=== PATIENT | male | born 1955 | race Caucasian/White ===

== ENCOUNTER 2016-07-14 07:40 | Observation (INO) | payer BC ==
[~2016-07-14] VITALS: Ht 152.4 cm; Wt 98.0 kg
[2016-07-14 07:44] VITALS: BP 140/70; PULSE 89; RESP 15; TEMP 97.6; O2SAT 95
[2016-07-14] MEDS ORDERED: TIOT1AER INH (08:14)
[2016-07-14] MEDS ORDERED: NITR1SUB3 SL (08:14)
[2016-07-14] MEDS ORDERED: CARV6.252 PO (08:14)
[2016-07-14] MEDS ORDERED: RANO500 PO (08:14)
[2016-07-14] MEDS ORDERED: PLAV75TA29 PO (08:14)
[2016-07-14] MEDS ORDERED: ASPI81CH37 CHEW (08:14)
[2016-07-14] MEDS ORDERED: ROSU1TAB8 PO (08:14)
[2016-07-14] MEDS ORDERED: RAMI2.5C PO (08:14)
[2016-07-14 08:16] VITALS: BP 96/61; PULSE 79; RESP 17; O2SAT 93
[2016-07-14 08:20] VITALS: BP 96/61; PULSE 77
[2016-07-14 08:27] VITALS: O2SAT 96
[2016-07-14] MEDS ORDERED: ASPIRIN 325 MG TAB PO ONE (08:30)
[2016-07-14] MEDS ORDERED: methylPREDNISolone SOD SUCC 125 MG/2 ML VIAL IV PUSH ONE (08:30)
[2016-07-14] MEDS ORDERED: SODIUM CHLORIDE 0.9% FLUSH 10 ML FLUSH IVF PRN (08:30)
--- NOTE | 2016-07-14 08:30 | PD ---
HPI Chief Complaint: Cardiac Complaint Time Seen by Provider: 08:24 Travel History International Travel<30 days: No Contact w/Intl Traveler<30days: No Traveled to known affect area: No History of Present Illness HPI 60-year-old male with history of previous TX, presents to the ER today because he states that he woke up this morning and started having a 7 out of 10 chest pain at 7 AM, took nitroglycerin this morning and he states his chest pain is gone. He is here because of the chest pain concern. He is also noted to have some slurring of the speech which she states is not normal for him although he is mildly disoriented as well. Patient also complains of mild shortness of breath. He denies any nausea, fevers, vomiting, or any other symptoms. Modifying Factors: None Associated Signs & Symptoms: Chest pain episode, shortness of breath, disorientation Risk Factors: Previous CVA, [place] PFSH Past Medical History Heart Rhythm Problems: No Cardiac Catheterization: No Cardiovascular Problems: Yes ([place] ) High Cholesterol: Yes Chest Pain: Yes Congestive Heart Failure: No COPD: Yes Cerebrovascular Accident: Yes Diabetes: No Neurologic: Yes Immunizations Current: Yes Myocardial Infarction: Yes Tetanus Vaccination: < 5 Years Influenza Vaccination: Yes Tubal Ligation: Yes Past Surgical History Abdominal Surgery: Yes Appendectomy: Yes Coronary Artery Bypass Graft: No Tonsillectomy: Yes Other Surgery: Yes Family History Family Myocardial Infarction: Yes Social History Alcohol Use: Yes (three times a week) Tobacco Use: Yes (almost two packs per day) Substance Use: Yes (cocaine ) Allergies-Medications (Allergen,Severity, Reaction): Coded Allergies: Penicillin (Verified Allergy, Severe, 07/14/16) Reported Meds & Prescriptions Reported Meds & Active Scripts Active Reported Stiolto Respimat Inh (Tiotropium-Olodaterol Inh) 2.5-2.5 Mcg/Act Aero 2 Puff INH DAILY Rosuvastatin (Rosuvastatin Calcium) 20 Mg Tab 20 Mg PO HS Nitroglycerin SL (Nitroglycerin) 0.4 Mg Subl 0.4 Mg SL DIRECTED PRN ONE TABLET UNDER THE TONGUE NEEDED FOR CHEST PAIN, MAY REPEAT EVERY FIVE MINUTES FOR A TOTAL OF 3 DOSES OR CALL 911 IF NO RELIEF Carvedilol 6.25 Mg Tab 6.25 Mg PO BID Ranexa ER 12 HR (Ranolazine) 500 Mg Tab 500 Mg PO BID Ramipril 2.5 Mg Cap 2.5 Mg PO DAILY Aspirin Low Dose (Aspirin) 81 Mg Chew 81 Mg CHEW DAILY Plavix (Clopidogrel Bisulfate) 75 Mg Tab 75 Mg PO DAILY Review of Systems Except as stated in HPI: all other systems reviewed are Neg (he is mildly disoriented although able to answer most questions) Physical Exam Narrative GENERAL: Well-developed elderly white male patient who is not currently in distress. He is awake, alert, mildly disoriented, but oriented 3. Slurred speech. SKIN: Focused skin assessment warm/dry. HEAD: Atraumatic. Normocephalic. EYES: Pupils equal and round. No scleral icterus. No injection or drainage. ENT: No nasal bleeding or discharge. Mucous membranes pink and moist. NECK: Trachea midline. No JVD. CARDIOVASCULAR: Regular rate and rhythm. No murmur appreciated. RESPIRATORY: No accessory muscle use. Mild wheezing bilaterally. Breath sounds equal bilaterally. GASTROINTESTINAL: Abdomen soft, non-tender, nondistended. Hepatic and splenic margins not palpable. MUSCULOSKELETAL: No obvious deformities. No clubbing. No cyanosis. No edema. NEUROLOGICAL: Awake and alert. No obvious cranial nerve deficits. Motor grossly within normal limits. Slurred speech. PSYCHIATRIC: Appropriate mood and affect; insight and judgment normal. Data Data Last Documented VS Vital Signs Date Time Temp Pulse Resp B/P Pulse Ox O2 Delivery O2 Flow Rate FiO2 07/14/16 08:27 96 Nasal Cannula 2 07/14/16 08:20 77 96/61 07/14/16 08:16 17 07/14/16 07:44 97.6 Orders Electrocardiogram (07/14/16 ) Electrocardiogram (07/14/16 08:24) B-Type Natriuretic Peptide (07/14/16 08:24) Ckmb (Isoenzyme) Profile (07/14/16 08:24) Complete Blood Count With Diff (07/14/16 08:24) Comprehensive Metabolic Panel (07/14/16 08:24) Magnesium (Mg) (07/14/16 08:24) Prothrombin Time / Inr (Pt) (07/14/16 08:24) Act Partial Throm Time (Ptt) (07/14/16 08:24) Troponin I (07/14/16 08:24) Chest, Single Ap (07/14/16 08:24) Ecg Monitoring (07/14/16 08:24) Bilateral Bp Monitoring (07/14/16 08:24) Iv Access Insert/Monitor (07/14/16 08:24) Oximetry (07/14/16 08:24) Oxygen Administration (07/14/16 08:24) Aspirin (Aspirin) (07/14/16 08:30) Sodium Chloride 0.9% Flush (Ns Flush) (07/14/16 08:30) Methylprednisolone So Succ Inj (Solumedr (07/14/16 08:30) Albuterol-Ipratropium Neb (Duoneb Neb) (07/14/16 08:30) Alcohol (Ethanol) (07/14/16 08:24) Ct Brain W/O Iv Contrast(Rout) (07/14/16 08:30) CKMB (07/14/16 08:30) CKMB% (07/14/16 08:30) Admit Order (Ed Use Only) (07/14/16 09:58) Labs Laboratory Tests Test 07/14/16 08:30 White Blood Count 7.3 TH/MM3 Red Blood Count 4.35 MIL/MM3 Hemoglobin 14.2 GM/DL Hematocrit 39.9 % Mean Corpuscular Volume 91.8 FL Mean Corpuscular Hemoglobin 32.7 PG Mean Corpuscular Hemoglobin 35.6 % Concent Red Cell Distribution Width 12.7 % Platelet Count 181 TH/MM3 Mean Platelet Volume 9.0 FL Neutrophils (%) (Auto) 64.1 % Lymphocytes (%) (Auto) 23.2 % Monocytes (%) (Auto) 8.8 % Eosinophils (%) (Auto) 3.3 % Basophils (%) (Auto) 0.6 % Neutrophils # (Auto) 4.7 TH/MM3 Lymphocytes # (Auto) 1.7 TH/MM3 Monocytes # (Auto) 0.6 TH/MM3 Eosinophils # (Auto) 0.2 TH/MM3 Basophils # (Auto) 0.0 TH/MM3 CBC Comment DIFF FINAL Differential Comment Prothrombin Time 11.3 SEC Prothromb Time International 1.0 RATIO Ratio Activated Partial 27.1 SEC Thromboplast Time Sodium Level 135 MEQ/L Potassium Level 3.5 MEQ/L Chloride Level 100 MEQ/L Carbon Dioxide Level 28.5 MEQ/L Anion Gap 7 MEQ/L Blood Urea Nitrogen 23 MG/DL Creatinine 1.05 MG/DL Estimat Glomerular Filtration 72 ML/MIN Rate Random Glucose 137 MG/DL Calcium Level 9.0 MG/DL Magnesium Level 2.1 MG/DL Total Bilirubin 1.0 MG/DL Aspartate Amino Transf 59 U/L (AST/SGOT) Alanine Aminotransferase 59 U/L (ALT/SGPT) Alkaline Phosphatase 80 U/L Total Creatine Kinase 733 U/L Creatine Kinase MB 16.8 NG/ML Creatine Kinase MB % 2.3 % Troponin I LESS THAN 0.02 NG/ML B-Type Natriuretic Peptide 63 PG/ML Total Protein 7.0 GM/DL Albumin 3.8 GM/DL Ethyl Alcohol Level 3 MG/DL MDM Medical Decision Making Medical Screen Exam Complete: Yes Emergency Medical Condition: Yes Medical Record Reviewed: Yes Interpretation(s) EKG shows NSR, no ST elevation or depression, and no arrhythmias. No significant T-wave inversions. Laboratory Tests Test 07/14/16 08:30 Red Blood Count 4.35 MIL/MM3 (4.50-5.90) Monocytes (%) (Auto) 8.8 % (0.0-8.0) Sodium Level 135 MEQ/L (136-145) Blood Urea Nitrogen 23 MG/DL (7-18) Estimat Glomerular Filtration 72 ML/MIN (>89) Rate Random Glucose 137 MG/DL (74-106) Aspartate Amino Transf 59 U/L (15-37) (AST/SGOT) Total Creatine Kinase 733 U/L (39-308) Creatine Kinase MB 16.8 NG/ML (0.5-3.6) Troponin I LESS THAN 0.02 NG/ML (0.02-0.05) Last [address] 07/14/16829 Signed Impressions: Service Date/Time: June 08:54 - CONCLUSION: Stable noncontrast head CT. No acute intracranial abnormality is identified. Douglas Zuniga MD Chest X-Ray 07/14/16823 Signed Impressions: Service Date/Time: June 08:33 - CONCLUSION: No acute cardiopulmonary abnormality is identified. Douglas Zuniga MD Differential Diagnosis Chest pain, shortness of breath, disorientationACS versus dysrhythmias versus alcohol intoxication versus metabolic issues versus alcohol intoxication versus CVA versus acute intracranial processes Narrative Course Patient has no focal neurological deficits. He has no signs of significant metabolic issues and cardiac enzymes are negative. EKG did not show any signs of ST changes. At this point, he is chest pain-free. CT of the brain did not reveal any signs of acute processes. On reevaluation at 10 AM, he is signs significant distress. He is awake and oriented 3. My plan would be at this point to admit him to chest pain center for further evaluation of his chest pain episode considering cardiac history. Diagnosis Primary Impression: Chest pain Admitting Information Admitting Physician Requests: it Alessandro Mobley MD Jul 14, 2016 08:30
[2016-07-14] MEDS: RESP: ALBUTEROL 2.5 MG/IPRATROPIUM 0.5 MG NEB (SCH) INH ×2 (08:36→08:37)
[2016-07-14 09:08] LABS: AUTOMATED NEUTROPHIL # 4.7 TH/MM3 (1.8-7.7); BASOPHIL % 0.6 % (0.0-2.0); EOSINOPHIL # 0.2 TH/MM3 (0-0.4); EOSINOPHIL % 3.3 % (0.0-4.0); HEMATOCRIT 39.9 % (39.0-51.0); HEMO FLAGS DIFF FINAL; LYMPH % 23.2 % (9.0-44.0); LYMPHOCYTE # 1.7 TH/MM3 (1.0-4.8); MEAN CELL VOLUME 91.8 FL (80.0-100.0); MEAN CORPUSCULAR HEMOGLOBIN 32.7 PG (27.0-34.0); MEAN CORPUSCULAR HGB CONC 35.6 % (32.0-36.0); MONO % 8.8 % (0.0-8.0); NEUT % 64.1 % (16.0-70.0); PLATELET COUNT 181 TH/MM3 (150-450); RED BLOOD COUNT 4.35 MIL/MM3 (4.50-5.90); RED CELL DISTRIBUTION WIDTH 12.7 % (11.6-17.2); WHITE BLOOD COUNT 7.3 TH/MM3 (4.0-11.0)
[2016-07-14 09:17] LABS: APTT (PATIENT) 27.1 SEC (24.3-30.1); PROTHROMBIN TIME - PATIENT 11.3 SEC (9.8-11.6)
--- NOTE | 2016-07-14 09:18 | RADRPT ---
EXAM DATE/TIME: 07/14/2016 08:54 [facility] COMPARISON: CT BRAIN W/O CONTRAST, August 30, 2010, 20:20. INDICATIONS : Altered, slurred speech RADIATION DOSE: 41.12 CTDIvol (mGy) MEDICAL HISTORY : Cardiovascular disease. Cerebrovascular disease. SURGICAL HISTORY : Tonsillectomy. ENCOUNTER: Initial ACUITY: 1 day PAIN SCALE: 2/10 LOCATION: Bilateral cranial TECHNIQUE: Multiple contiguous axial images were obtained of the head. Using automated exposure control and adj ustment of the mA and/or kV according to patient size, radiation dose was kept as low as reasonably a chievable to obtain optimal diagnostic quality images. FINDINGS: CEREBRUM: There is mild cerebral atrophy particularly in the frontal region. Ventricles are normal in size the cavum septum pellucidum. No evidence of midline shift, mass lesion, hemorrhage or acute infarction. No extra-axial fluid collections are seen. POSTERIOR FOSSA: The cerebellum and brainstem demonstrate no acute finding. The 4th ventricle is midline. The cerebe llopontine angle is unremarkable. EXTRACRANIAL: Visualized sinuses are clear. SKULL: The calvaria is intact. No evidence of skull fracture. CONCLUSION: Stable noncontrast head CT. No acute intracranial abnormality is identified. Douglas Zuniga MD on July 14, 2016 at 9:10 Board Certified Radiologist. This report was verified electronically.
[2016-07-14 09:27] LABS: ANION GAP 7 MEQ/L (5-15)
[2016-07-14 09:32] LABS: ALKALINE PHOSPHATASE 80 U/L (45-117); ALT (GPT) 59 U/L (12-78); AST (GOT) 59 U/L (15-37); BICARBONATE 28.5 MEQ/L (21.0-32.0); BLOOD UREA NITROGEN 23 MG/DL (7-18); CHLORIDE 100 MEQ/L (98-107); CREATINE KINASE 733 U/L (39-308); GLOMERULAR FILTRATION RATE 72 ML/MIN (>89); MAGNESIUM 2.1 MG/DL (1.5-2.5); POTASSIUM 3.5 MEQ/L (3.5-5.1); SODIUM (NA) 135 MEQ/L (136-145)
--- NOTE | 2016-07-14 09:47 | RADRPT ---
EXAM DATE/TIME: 07/14/2016 08:33 [facility] COMPARISON: CHEST SINGLE AP, June 28, 2015, 5:00. INDICATIONS : Shortness of breath. MEDICAL HISTORY : None. SURGICAL HISTORY : None. ENCOUNTER: Initial ACUITY: 3 days PAIN SCORE: 0/10 LOCATION: Bilateral chest FINDINGS: Portable AP view of the chest demonstrates a normal-sized cardiac silhouette. No effusion, consolidat ion, or pneumothorax is visualized. The bones and soft tissues demonstrate no acute abnormality. CONCLUSION: No acute cardiopulmonary abnormality is identified. Douglas Zuniga MD on July 14, 2016 at 9:45 Board Certified Radiologist. This report was verified electronically.
[2016-07-14 10:01] LABS: CKMB 16.8 NG/ML (0.5-3.6)
[2016-07-14] MEDS ORDERED: SODIUM CHLORIDE 0.9% FLUSH 10 ML FLUSH IV FLUSH PRN (10:45)
[2016-07-14] MEDS ORDERED: NITROGLYCERIN 0.4 MG SL 25 TABS/BTL SL PRN (10:45)
[2016-07-14] MEDS ORDERED: ACETAMINOPHEN 500 MG CPLT PO PRN (10:45)
[2016-07-14] MEDS ORDERED: ONDANSETRON HCL 4 MG/2 ML VIAL IV PRN (10:45)
[2016-07-14 11:00] VITALS: BP 112/76; PULSE 71; RESP 18; O2SAT 96
[2016-07-14 12:22] LABS: CREATINE KINASE 655 U/L (39-308)
[2016-07-14 12:34] LABS: CKMB 15.2 NG/ML (0.5-3.6)
[2016-07-14 12:39] LABS: AMPHETAMINE, URINE NEG (NEG); BARBITURATES, URINE NEG (NEG); COCAINE, URINE POS (NEG)
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
[2016-07-14] MEDS ORDERED: SODIUM CHLOR 0.9% 1000 ML INJ 1,000 ML IV SCH (13:45)
[2016-07-14] MEDS ORDERED: RESP: ALBUTEROL 2.5 MG/3 ML NEB (PRN) NEB (13:45)
--- NOTE | 2016-07-14 13:53 | EKG ---
Date Performed: 07/14/2016 Time Performed: 07:56:24 PTAGE: 60 years EKG: Sinus rhythm NONSPECIFIC T-WAVE ABNORMALITY BORDERLINE ECG Compared to prior tracing no significant change PREVIOUS TRACING : 06/28/2015 10.47 DOCTOR: Alfredito Díaz Interpretating Date/Time 07/14/2016 13:52:56
--- NOTE | 2016-07-14 14:23 | HHI.DCPOC ---
Discharge Care Plan Diagnosis: (1) Atypical chest pain (2) Tobacco abuse (3) Substance use disorder (4) Hx of coronary artery disease Goals to Promote Your Health * To prevent worsening of your condition and complications * To maintain your health at the optimal level Directions to Meet Your Goals Take your medications as prescribed Follow your dietary instruction Follow activity as directed Keep your appointments as scheduled Take your immunizations and boosters as scheduled If your symptoms worsen call your PCP, if no PCP go to Urgent Care Center or Emergency Room Smoking is Dangerous to Your Health. Avoid second hand smoke Call the 24-hour hour crisis hotline for domestic abuse at Em Martin Jul 14, 2016 14:23
[2016-07-14] MEDS ORDERED: RESP: ALBUTEROL 2.5 MG/3 ML NEB (SCH) NEB (16:00)
[2016-07-14] MEDS ORDERED: SODIUM CHLORIDE 0.9% FLUSH 10 ML FLUSH IV FLUSH SCH (21:00)
[2016-07-15] MEDS ORDERED: ASPIRIN 325 MG TAB PO SCH (09:00)
--- NOTE | 2016-07-15 15:08 | EKG ---
Date Performed: 07/14/2016 Time Performed: 11:33:00 PTAGE: 60 years EKG: Sinus rhythm NONSPECIFIC T-WAVE ABNORMALITY BORDERLINE ECG PREVIOUS TRACING : 07/14/2016 07.56 Since previous tracing, no significant change noted DOCTOR: Alfredito Díaz Interpretating Date/Time 07/15/2016 15:06:51
== END 2016-07-14 15:19 | disposition home or self-care (01) ==
LOC: NEPC 07:40 → NEDA 09:59 → NEPHCDU 11:51
PROVIDERS: ADMIT Internal Medicine Interventional Cardiology; ATTEND Internal Medicine Interventional Cardiology
DX: R07.89 Other chest pain (principal); I25.10 Atherosclerotic heart disease of native coronary artery without angina pectoris; I25.2 Old myocardial infarction; R94.31 Abnormal electrocardiogram [ECG] [EKG]; J44.9 Chronic obstructive pulmonary disease, unspecified; E78.5 Hyperlipidemia, unspecified; E78.00 Pure hypercholesterolemia, unspecified; F14.90 Cocaine use, unspecified, uncomplicated; F17.210 Nicotine dependence, cigarettes, uncomplicated; Z86.73 Personal history of transient ischemic attack (TIA), and cerebral infarction without residual deficits
CPT/HCPCS: 70450; 71010; 80053; 80307; 82550; 82552; 83735; 83880; 84484; 85025; 85610; 85730; 93005; 94640; 94664; 96374; 99285; G0378; J2930

== ENCOUNTER 2016-10-30 02:36 | Observation (INO) | payer BC ==
[2016-10-30] VITALS (8 sets, daily range): BP systolic 111–138; BP diastolic 62–80; PULSE 60–95; RESP 14–18; TEMP 98.1–99; O2SAT 94–98
[~2016-10-30] VITALS: Ht 180.3 cm; Wt 93.0 kg
[~2016-10-30 02:36] MED LIST: ASPI81CH37 CHEW; CARV6.252 PO; NITR1SUB3 SL; PLAV75TA29 PO; RAMI2.5C PO; RANO500 PO; ROSU1TAB8 PO; TIOT1AER INH
[2016-10-30] MEDS ORDERED: ASPIRIN 81 MG CHEW TAB PO ONE (03:45)
[2016-10-30] MEDS ORDERED: SODIUM CHLORIDE 0.9% FLUSH 10 ML FLUSH IVF PRN (03:45)
[2016-10-30] MEDS ORDERED: MORPHINE SULFATE 4 MG/ML INJ IV PUSH ONE (03:45)
[2016-10-30 04:05] LABS: AUTOMATED NEUTROPHIL # 5.1 TH/MM3 (1.8-7.7); BASOPHIL % 0.6 % (0.0-2.0); EOSINOPHIL # 0.2 TH/MM3 (0-0.4); EOSINOPHIL % 3.2 % (0.0-4.0); HEMATOCRIT 45.6 % (39.0-51.0); HEMO FLAGS DIFF FINAL; MEAN CELL VOLUME 94.9 FL (80.0-100.0); MEAN CORPUSCULAR HEMOGLOBIN 33.6 PG (27.0-34.0); MEAN CORPUSCULAR HGB CONC 35.4 % (32.0-36.0); MONO % 4.6 % (0.0-8.0); NEUT % 65.6 % (16.0-70.0); PLATELET COUNT 198 TH/MM3 (150-450); RED BLOOD COUNT 4.81 MIL/MM3 (4.50-5.90); RED CELL DISTRIBUTION WIDTH 13.1 % (11.6-17.2); WHITE BLOOD COUNT 7.8 TH/MM3 (4.0-11.0)
[2016-10-30 04:15] LABS: APTT (PATIENT) 25.4 SEC (24.3-30.1); PROTHROMBIN TIME - PATIENT 10.5 SEC (9.8-11.6)
--- NOTE | 2016-10-30 04:18 | RADRPT ---
EXAM DATE/TIME: 10/30/2016 03:38 [facility] COMPARISON: CHEST SINGLE AP, July 14, 2016, 8:33. INDICATIONS : Chest tightness. MEDICAL HISTORY : Cardiovascular disease. Cerebrovascular disease SURGICAL HISTORY : Tonsillectomy. ENCOUNTER: Initial ACUITY: 1 day PAIN SCORE: 4/10 LOCATION: Bilateral chest FINDINGS: A single view of the chest demonstrates the lungs to be symmetrically aerated without evidence of mas s, infiltrate or effusion. The cardiomediastinal contours are unremarkable. Osseous structures are intact. CONCLUSION: No acute disease. Justin Fleming MD on October 30, 2016 at 4:16 Board Certified Radiologist. This report was verified electronically.
[2016-10-30 04:19] LABS: ANION GAP 7 MEQ/L (5-15); BICARBONATE 27.2 MEQ/L (21.0-32.0); BLOOD UREA NITROGEN 13 MG/DL (7-18); CHLORIDE 105 MEQ/L (98-107); GLOMERULAR FILTRATION RATE 69 ML/MIN (>89); POTASSIUM 3.5 MEQ/L (3.5-5.1); SODIUM (NA) 139 MEQ/L (136-145)
[2016-10-30 04:22] LABS: CREATINE KINASE 132 U/L (39-308)
[2016-10-30 04:35] LABS: CKMB 2.8 NG/ML (0.5-3.6)
--- NOTE | 2016-10-30 05:40 | PD ---
HPI Chief Complaint: Chest Pain Time Seen by Provider: 03:37 Travel History International Travel<30 days: No Contact w/Intl Traveler<30days: No Traveled to known affect area: No History of Present Illness HPI Patient is a 60-year-old male with history of cardiac problems, comes in complaining of chest pain. He localizes the pain to the center of his chest, and says it has been there for the past 3 days. He has taken nitroglycerin yesterday, and says this helped a little bit. He has some shortness of breath and nausea associated with this. He does admit to using cocaine tonight and drinking alcohol. He says he was supposed to have a stress test 3 months ago, but did not have the test performed. He denies fever or chills. He denies cough or cold. PFSH Past Medical History Hx Anticoagulant Therapy: Yes (Plavix) Heart Rhythm Problems: No Cardiac Catheterization: Yes Cardiovascular Problems: Yes (HTN, MIx1, CAD) High Cholesterol: Yes Chest Pain: Yes Congestive Heart Failure: No COPD: Yes Cerebrovascular Accident: Yes Diabetes: No Neurologic: Yes Respiratory: Yes (COPD) Immunizations Current: Yes Myocardial Infarction: Yes Tetanus Vaccination: > 5 Years Tubal Ligation: Yes Past Surgical History Abdominal Surgery: Yes Appendectomy: Yes Coronary Artery Bypass Graft: No Tonsillectomy: Yes Other Surgery: Yes Family History Family Myocardial Infarction: Yes Social History Alcohol Use: Yes (6-12 beers per day) Tobacco Use: Yes (almost two packs per day) Substance Use: Yes (cocaine last used yesterday) Allergies-Medications (Allergen,Severity, Reaction): Coded Allergies: Penicillin (Verified Allergy, Severe, 07/14/16) Reported Meds & Prescriptions Reported Meds & Active Scripts Active Reported Stiolto Respimat Inh (Tiotropium-Olodaterol Inh) 2.5-2.5 Mcg/Act Aero 2 Puff INH DAILY Rosuvastatin (Rosuvastatin Calcium) 20 Mg Tab 20 Mg PO HS Nitroglycerin SL (Nitroglycerin) 0.4 Mg Subl 0.4 Mg SL DIRECTED PRN ONE TABLET UNDER THE TONGUE NEEDED FOR CHEST PAIN, MAY REPEAT EVERY FIVE MINUTES FOR A TOTAL OF 3 DOSES OR CALL 911 IF NO RELIEF Carvedilol 6.25 Mg Tab 6.25 Mg PO BID Ranexa ER 12 HR (Ranolazine) 500 Mg Tab 500 Mg PO BID Ramipril 2.5 Mg Cap 2.5 Mg PO DAILY Aspirin Low Dose (Aspirin) 81 Mg Chew 81 Mg CHEW DAILY Plavix (Clopidogrel Bisulfate) 75 Mg Tab 75 Mg PO DAILY Review of Systems Except as stated in HPI: all other systems reviewed are Neg General / Constitutional: No: Fever, Chills Eyes: No: Blurred Vision HENT: No: Headaches, Lightheadedness Cardiovascular: Positive: Chest Pain or Discomfort Respiratory: Positive: Shortness of Breath Gastrointestinal: Positive: Nausea, No: Vomiting, Abdominal Pain Musculoskeletal: No: Edema Skin: No Rash, No Change in Pigmentation Neurologic: No: Weakness, Dizziness Physical Exam Narrative GENERAL: Awake and alert, in no acute distress. SKIN: Focused skin assessment warm/dry. HEAD: Atraumatic. Normocephalic. EYES: Pupils equal and round. No scleral icterus. ENT: Mucous membranes pink and moist. NECK: Trachea midline. No JVD. CARDIOVASCULAR: Regular rate and rhythm. No murmur appreciated. RESPIRATORY: No accessory muscle use. Clear to auscultation. Breath sounds equal bilaterally. GASTROINTESTINAL: Abdomen soft, non-tender, nondistended. Hepatic and splenic margins not palpable. MUSCULOSKELETAL: No obvious deformities. No clubbing. No cyanosis. No edema. NEUROLOGICAL: Awake and alert. No obvious cranial nerve deficits. Motor grossly within normal limits. Normal speech. PSYCHIATRIC: Appropriate mood and affect; insight and judgment normal. Data Data Last Documented VS Vital Signs Date Time Temp Pulse Resp B/P Pulse Ox O2 Delivery O2 Flow Rate FiO2 10/30/16 04:48 92 14 130/76 98 Room Air 10/30/16 02:37 98.1 Orders Basic Metabolic Panel (Bmp) (10/30/16 03:37) Ckmb (Isoenzyme) Profile (10/30/16 03:37) Complete Blood Count With Diff (10/30/16 03:37) Prothrombin Time / Inr (Pt) (10/30/16 03:37) Act Partial Throm Time (Ptt) (10/30/16 03:37) Troponin I (10/30/16 03:37) Chest, Single Ap (10/30/16 03:37) Ecg Monitoring (10/30/16 03:37) Bilateral Bp Monitoring (10/30/16 03:37) Iv Access Insert/Monitor (10/30/16 03:37) Oximetry (10/30/16 03:37) Oxygen Administration (10/30/16 03:37) Aspirin Chew (Aspirin Chew) (10/30/16 03:45) Sodium Chloride 0.9% Flush (Ns Flush) (10/30/16 03:45) Morphine Inj (Morphine Inj) (10/30/16 03:45) CKMB (10/30/16 03:45) CKMB% (10/30/16 03:45) Activity Bed Rest With Brp (10/30/16 05:37) Vital Signs (Adult) Q4H (10/30/16 05:37) Cardiac Rhythm .As Directed (10/30/16 05:37) Notify Dr: Other .PRN (10/30/16 05:37) Notify DrBrad Parameters (10/30/16 05:37) Resp Oxygen Nasal Cannula (10/30/16 ) Ckmb (Isoenzyme) Profile (10/30/16 06:45) Ckmb (Isoenzyme) Profile (10/30/16 09:45) Troponin I (10/30/16 06:45) Troponin I (10/30/16 09:45) Electrocardiogram (10/30/16 06:45) Electrocardiogram (10/30/16 09:45) ^ Obtain (10/30/16 05:37) Sodium Chloride 0.9% Flush (Ns Flush) (10/30/16 05:45) Sodium Chloride 0.9% Flush (Ns Flush) (10/30/16 09:00) Pasteurizing Supervisor / Telemetry THOMAS.Q8H (10/30/16 05:37) Admit Order (Ed Use Only) (10/30/16 ) CKMB (10/30/16 06:26) CKMB% (10/30/16 06:26) Labs Laboratory Tests Test 10/30/16 03:45 White Blood Count 7.8 TH/MM3 Red Blood Count 4.81 MIL/MM3 Hemoglobin 16.1 GM/DL Hematocrit 45.6 % Mean Corpuscular Volume 94.9 FL Mean Corpuscular Hemoglobin 33.6 PG Mean Corpuscular Hemoglobin 35.4 % Concent Red Cell Distribution Width 13.1 % Platelet Count 198 TH/MM3 Mean Platelet Volume 8.6 FL Neutrophils (%) (Auto) 65.6 % Lymphocytes (%) (Auto) 26.0 % Monocytes (%) (Auto) 4.6 % Eosinophils (%) (Auto) 3.2 % Basophils (%) (Auto) 0.6 % Neutrophils # (Auto) 5.1 TH/MM3 Lymphocytes # (Auto) 2.0 TH/MM3 Monocytes # (Auto) 0.4 TH/MM3 Eosinophils # (Auto) 0.2 TH/MM3 Basophils # (Auto) 0.0 TH/MM3 CBC Comment DIFF FINAL Differential Comment Prothrombin Time 10.5 SEC Prothromb Time International 1.0 RATIO Ratio Activated Partial 25.4 SEC Thromboplast Time Sodium Level 139 MEQ/L Potassium Level 3.5 MEQ/L Chloride Level 105 MEQ/L Carbon Dioxide Level 27.2 MEQ/L Anion Gap 7 MEQ/L Blood Urea Nitrogen 13 MG/DL Creatinine 1.09 MG/DL Estimat Glomerular Filtration 69 ML/MIN Rate Random Glucose 73 MG/DL Calcium Level 9.1 MG/DL Total Creatine Kinase 132 U/L Creatine Kinase MB 2.8 NG/ML Troponin I LESS THAN 0.02 NG/ML MDM Medical Decision Making Medical Screen Exam Complete: Yes Emergency Medical Condition: Yes Medical Record Reviewed: Yes Interpretation(s) ECG shows NSR without st elevation or depression Differential Diagnosis ACS vs NSTEMI vs STEMI Narrative Course Patient is a 60-year-old male comes in complaining of chest pain. He does admit to using cocaine tonight. Exam shows no acute abnormalities. IV established, labs sent. Patient connected to the quality assurance monitor body. Patient given aspirin and morphine. Labs sent show no acute abnormalities. Chest x- ray shows no acute abnormal maladies. Patient was placed in chest pain center for further management. Diagnosis Primary Impression: Chest pain Qualified Code: R07.9 - Chest pain, unspecified type Admitting Information Admitting Physician Requests: Observation Condition: Stable Yamileth Perez MD Oct 30, 2016 05:40
[2016-10-30] MEDS ORDERED: SODIUM CHLORIDE 0.9% FLUSH 10 ML FLUSH IV FLUSH PRN (05:45)
[2016-10-30 07:20] LABS: CREATINE KINASE 108 U/L (39-308)
[2016-10-30 07:32] LABS: CKMB 2.5 NG/ML (0.5-3.6)
[2016-10-30] MEDS ORDERED: ACETAMINOPHEN 500 MG CPLT PO PRN (07:45)
[2016-10-30] MEDS ORDERED: NITROGLYCERIN 0.4 MG SL 25 TABS/BTL SL PRN (07:45)
[2016-10-30] MEDS ORDERED: ONDANSETRON HCL 4 MG/2 ML VIAL IV PRN (07:45)
[2016-10-30] MEDS ORDERED: SODIUM CHLORIDE 0.9% FLUSH 10 ML FLUSH IV FLUSH SCH (09:00)
[2016-10-30] MEDS ORDERED: ASPIRIN 325 MG TAB PO SCH (09:00)
--- NOTE | 2016-10-30 10:11 | HHI.HP ---
HPI Primary Care Physician Non-Staff Chief Complaint Chest pain History of Present Illness 60-year-old male history of ordinary artery disease, hyperlipidemia, COPD, and hypertension presents to emergency room for further evaluation of chest pain. Onset 3 days. Location substernal. Characterized as pressure and tightness. Severity has been 5/10. No radiation of pain. Duration has been constant. No associated symptoms of nausea, vomiting, diaphoresis or shortness of breath. No known precipitating or relieving factors. Endorses making "bad choices with drugs and alcohol all summer." Also reports not taken my medications as prescribed. Review of Systems General: Fatigue and reports "no energy" for at least 3 weeks. Has been using cocaine and alcohol to deal with multiple stressors. No fever, chills, or recent illness. HEENT: No TAVERAS, no vision changes CV: As stated above. Continues to have chest pressure. RESP: No SOB or wheeze. "Smokers cough" with occasional sputum production unchanged from baseline. GI: No nausea, vomiting, bowel changes, diarrhea, constipation, pain, distention , melena, hematemesis, or blood in the stool. No unintentional weight gain or weight loss. 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 Reports anxiety "my whole life but I normally just deal with it." Reports situational depression currently. No suicidal ideation. SKIN: No rashes, no concerning lesions Past Family Social History Allergies: Coded Allergies: Penicillin (Verified Allergy, Severe, 07/14/16) Past Medical History Hypertension, CO 1, hyperlipidemia, TIA, COPD Past Surgical History Appendectomy, tonsillectomy Reported Medications Active Reported Stiolto Respimat Inh (Tiotropium-Olodaterol Inh) 2.5-2.5 Mcg/Act Aero 2 Puff INH DAILY Rosuvastatin (Rosuvastatin Calcium) 20 Mg Tab 20 Mg PO HS Nitroglycerin SL (Nitroglycerin) 0.4 Mg Subl 0.4 Mg SL DIRECTED PRN ONE TABLET UNDER THE TONGUE NEEDED FOR CHEST PAIN, MAY REPEAT EVERY FIVE MINUTES FOR A TOTAL OF 3 DOSES OR CALL 911 IF NO RELIEF Carvedilol 6.25 Mg Tab 6.25 Mg PO BID Ranexa ER 12 HR (Ranolazine) 500 Mg Tab 500 Mg PO BID Ramipril 2.5 Mg Cap 2.5 Mg PO DAILY Aspirin Low Dose (Aspirin) 81 Mg Chew 81 Mg CHEW DAILY Plavix (Clopidogrel Bisulfate) 75 Mg Tab 75 Mg PO DAILY Reports has not taken medication as prescribed missing doses for multiple days at a time. When he does take medications does not take twice a day medications once daily. Active Ordered Medications Current Medications Medications (Trade) Dose Ordered Sig/Eron Route Start Time Stop Time Status Last Admin (NS Flush) 2 ml UNSCH PRN IVF 10/30/16 03:45 10/30/16 03:58 (NS Flush) 2 ml UNSCH PRN IV FLUSH 10/30/16 05:45 (NS Flush) 2 ml BID IV FLUSH 10/30/16 09:00 10/30/16 09:01 (Tylenol) 500 mg Q4H PRN PO 10/30/16 07:45 (Zofran Inj) 4 mg Q6H PRN IV 10/30/16 07:45 (Nitrostat Sl) 0.4 mg Q5M PRN SL 10/30/16 07:45 (Aspirin) 325 mg DAILY PO 10/30/16 09:00 (Coreg) 6.25 mg BID PO 10/30/16 10:15 UNV (Plavix) 75 mg DAILY PO 10/30/16 10:15 UNV (Altace) 2.5 mg DAILY PO 10/30/16 10:15 UNV (Ranexa) 500 mg BID PO 10/30/16 10:15 UNV Non-Formulary Medication 20 mg HS PO 10/30/16 21:00 UNV Family History Noncontributory for early as a cardiovascular disease Social History Known coronary artery disease and hyperlipidemia. No known diabetes or hypertension. Continues to smoke 2 packs cigarettes daily. Alcohol daily stating drinking no last than 12 beers daily. Cocaine use last used 3 days ago. Single. Resides in [place], although states has not returned home since May 2016 due to business concerns. Past cardiac testing August 2015 cardiac catheterization-([place], [place]) reports he was a non- STEMI. Cardiac catheterization completed at that time revealed artery was too small for intervention. No cardiac stent or intervention required. Endorses he was unhappy with first cardiac catheterization and requested a second opinion. Subsequently, another elementary principal completed an additional cardiac catheterization within the same week. Again he was told area was too small for intervention and he had plenty of collaterals. Recommended medical management. Not followed with his elementary principal in [place] since spring 2016. Does not have a local elementary principal. Physical Exam Vital Signs Vital Signs Date Time Temp Pulse Resp B/P Pulse Ox O2 Delivery O2 Flow Rate FiO2 10/30/16 07:09 98.6 60 18 138/80 96 10/30/16 05:42 98 21 10/30/16 04:48 92 14 130/76 98 Room Air 10/30/16 02:37 98.1 95 16 128/72 96 Room Air Physical Exam GENERAL: Alert WN, WD, NAD, male who appears older than stated age. HEAD: NC, AT CV: RRR, without murmur, rub, gallop, no JVD, S1-S2 no S3-S4. No carotid bruits. RESP: Diminshed lungs throughout, slight faint expiratory wheeze, rhonchi cleared with coughing. no crackles, symmetrical chest rise, nonlabored, able to speak in full sentences ABD: Soft, NT, ND, no masses, positive bowel tones BACK: No CVAT, no scoliosis EXT: Pulses +24, no dependent edema MS: Chest wall pain easily reproducible with palpation. Normal tone 4 extremities, no obvious deformities, full range of motion NEURO: CN II through CN XII grossly intact, motor strength 5/5 PSYCH: A+O 3, appropriate speech, appropriate mood and affect, insight and judgment SKIN: Normal turgor, normal texture, no lesions, no rashes, brisk cap refill, even hair distribution Laboratory Laboratory Tests Test 10/30/16 10/30/16 03:45 06:26 White Blood Count 7.8 Red Blood Count 4.81 Hemoglobin 16.1 Hematocrit 45.6 Mean Corpuscular Volume 94.9 Mean Corpuscular Hemoglobin 33.6 Mean Corpuscular Hemoglobin 35.4 Concent Red Cell Distribution Width 13.1 Platelet Count 198 Mean Platelet Volume 8.6 Neutrophils (%) (Auto) 65.6 Lymphocytes (%) (Auto) 26.0 Monocytes (%) (Auto) 4.6 Eosinophils (%) (Auto) 3.2 Basophils (%) (Auto) 0.6 Neutrophils # (Auto) 5.1 Lymphocytes # (Auto) 2.0 Monocytes # (Auto) 0.4 Eosinophils # (Auto) 0.2 Basophils # (Auto) 0.0 CBC Comment DIFF FINAL Differential Comment Prothrombin Time 10.5 Prothromb Time International 1.0 Ratio Activated Partial 25.4 Thromboplast Time Sodium Level 139 Potassium Level 3.5 Chloride Level 105 Carbon Dioxide Level 27.2 Anion Gap 7 Blood Urea Nitrogen 13 Creatinine 1.09 Estimat Glomerular Filtration 69 Rate Random Glucose 73 Calcium Level 9.1 Total Creatine Kinase 132 108 Creatine Kinase MB 2.8 2.5 Troponin I LESS THAN 0.02 LESS THAN 0.02 Result Diagram: 10/30/1634410/30/16344 Imaging Last Impressions Chest X-Ray 10/30/16336 Signed Impressions: Service Date/Time: Sunday, October 30, 2016 03:38 - CONCLUSION: No acute disease. Justin Fleming MD Course EKG NSR, nonspecific T wave changes Assessment and Plan Assessment and Plan #1 Chest painadmitted to chest pain center. Will rule out with 3 sets of EKGs and cardiac enzymes. Will be seen and evaluated by Dr. Olivier Trevino. Chest discomfort atypical and does not appear to be cardiac. Discomfort most likely musculoskeletal in nature and further cardiac testing most likely will not be required patient had x2 recent cardiac catheterizations. #2 Tobacco use strongly encouraged and stressed the importance of tobacco sensation. Discussed and counseled patient to quit smoking. #3 Cocaine usecounseled on risk of cocaine use, risk of CO, and even . Education provided on possible usp risk of cocaine use to cardiac muscle given. #4 Alcohol useinformed him on daily alcohol use recommendations. Discussed possible usp risks with excessive alcohol intake. #5 Situational stress-encouraged him to consider discussing his coping mechanisms with a psychologist and/or substance abuse counselor. Patient not open to discussing with a counselor also refusing any information regarding alcohol and drug treatment options. Discussed in length importance of daily activity, eating a well balanced diet, getting plenty of rest, and to stop using alcohol or drugs would help to decrease his stress level mentally and physically. Fatigue and lack of energy most likely related to current daily alcohol, drugs, and current stress. #6 Musculoskeletal pain-reassurance provided chest pain not cardiac. Encouraged use of heating pad to affected area. May also take [id number] Aleve or Motrin as needed for pain. Strongly encouraged establish with a local PCP and elementary principal if he decides to stay in the area and to obtain records from physicians in [place]. Discuss importance of taking all prescription medications as prescribed. Em Martin Oct 30, 2016 10:11
[2016-10-30 10:25] LABS: CREATINE KINASE 98 U/L (39-308)
[2016-10-30] MEDS ORDERED: CARVEDILOL 6.25 MG TAB PO SCH (11:00)
[2016-10-30] MEDS ORDERED: RANOLAZINE 500 MG EXTENDED RELEASE TAB PO SCH (11:00)
[2016-10-30] MEDS ORDERED: CLOPIDOGREL 75 MG TAB PO SCH (11:00)
[2016-10-30] MEDS ORDERED: RAMIPRIL 2.5 MG CAP PO SCH (11:00)
--- NOTE | 2016-10-30 12:08 | HHI.DCPOC ---
Discharge Care Plan Diagnosis: (1) Musculoskeletal chest pain (2) Hx of coronary artery disease (3) Tobacco abuse (4) Situational stress (5) Cocaine abuse Goals to Promote Your Health * To prevent worsening of your condition and complications * To maintain your health at the optimal level Directions to Meet Your Goals Take your medications as prescribed Follow your dietary instruction Follow activity as directed Keep your appointments as scheduled Take your immunizations and boosters as scheduled If your symptoms worsen call your PCP, if no PCP go to Urgent Care Center or Emergency Room Smoking is Dangerous to Your Health. Avoid second hand smoke Call the 24-hour hour crisis hotline for domestic abuse at Em Martin Oct 30, 2016 12:08
--- NOTE | 2016-10-30 13:16 | EKG ---
Date Performed: 10/30/2016 Time Performed: 06:46:10 PTAGE: 60 years EKG: Sinus rhythm NONSPECIFIC T-WAVE ABNORMALITY BORDERLINE ECG PREVIOUS TRACING : 10/30/2016 03.22 Since previous tracing, no significant change noted DOCTOR: Olivier Trevino Interpretating Date/Time 10/30/2016 13:15:33
--- NOTE | 2016-10-30 13:22 | EKG ---
Date Performed: 10/30/2016 Time Performed: 03:22:23 PTAGE: 60 years EKG: Sinus rhythm SEPTAL MYOCARDIAL INFARCTION ABNORMAL ECG PREVIOUS TRACING : 07/14/2016 11.33 Since previous tracing, no significant change noted DOCTOR: Olivier Trevino Interpretating Date/Time 10/30/2016 13:22:11
--- NOTE | 2016-10-30 14:55 | EKG ---
Date Performed: 10/30/2016 Time Performed: 09:42:28 PTAGE: 60 years EKG: Sinus rhythm NONSPECIFIC T-WAVE ABNORMALITY BORDERLINE ECG Since PREVIOUS TRACING , no significant change noted DOCTOR: Olivier Trevino Interpretating Date/Time 10/30/2016 14:53:19
[2016-10-30] MEDS ORDERED: ATORVASTATIN 40 MG TAB PO SCH (21:00)
== END 2016-10-30 14:46 | disposition home or self-care (01) ==
LOC: NEPE 02:36 → NEDA 05:40 → NEPFCDU 06:20
DX: R07.89 Other chest pain (principal); F14.10 Cocaine abuse, uncomplicated; F43.21 Adjustment disorder with depressed mood; R94.31 Abnormal electrocardiogram [ECG] [EKG]; R11.0 Nausea; R06.02 Shortness of breath; M79.1 Myalgia; I25.10 Atherosclerotic heart disease of native coronary artery without angina pectoris; I10 Essential (primary) hypertension; E78.5 Hyperlipidemia, unspecified; J44.9 Chronic obstructive pulmonary disease, unspecified; I25.2 Old myocardial infarction; F17.210 Nicotine dependence, cigarettes, uncomplicated; Z86.73 Personal history of transient ischemic attack (TIA), and cerebral infarction without residual deficits; Z79.899 Other long term (current) drug therapy; Z79.82 Long term (current) use of aspirin; E78.00 Pure hypercholesterolemia, unspecified
CPT/HCPCS: 71010; 80048; 82550; 82552; 84484; 85025; 85610; 85730; 93005; 96374; 99285; G0378; J2270

== ENCOUNTER 2016-11-21 23:25 | Observation (INO) | payer BC ==
[~2016-11-21] VITALS: Ht 180.3 cm; Wt 91.0 kg
[2016-11-21 23:32] VITALS: BP 114/76; PULSE 82; RESP 22; TEMP 98.6; O2SAT 97
[2016-11-21] MEDS: NITROGLYCERIN 0.4 MG SL 25 TABS/BTL SL SCH ×2 (23:45→23:50)
[2016-11-21] MEDS ORDERED: ASPIRIN 81 MG CHEW TAB PO ONE (23:45)
[2016-11-21] MEDS ORDERED: SODIUM CHLORIDE 0.9% FLUSH 10 ML FLUSH IVF PRN (23:45)
--- NOTE | 2016-11-22 00:11 | PD ---
HPI Chief Complaint: Chest Pain Time Seen by Provider: 23:39 Travel History International Travel<30 days: No Contact w/Intl Traveler<30days: No Traveled to known affect area: No History of Present Illness HPI 61-year-old male with reported history of coronary artery disease here for evaluation of substernal chest pain. The patient reports that the pain started about 2-3 hours prior to arrival. He tried taking sublingual nitroglycerin at home which only slightly alleviated his pain. He describes the pain as sharp/ pressure like, radiating to his back. He admits to using cocaine yesterday and drinking alcohol today. He was seen in the emergency department about 3 weeks ago for the same and was admitted to the chest pain center where he had serial cardiac enzymes that were negative. It was felt that his chest pain was atypical at that time and he was discharged home without further testing. He denies fevers or chills. No cough. No paresthesias or motor deficits. PFSH Past Medical History Hx Anticoagulant Therapy: Yes (Plavix) Heart Rhythm Problems: No Cardiac Catheterization: Yes Cardiovascular Problems: Yes High Cholesterol: Yes Chest Pain: Yes Congestive Heart Failure: No COPD: Yes Cerebrovascular Accident: Yes Diabetes: No Diminished Hearing: No Heparin Induced Thrombocytopen: No Hypertension: Yes Neurologic: Yes Respiratory: Yes (COPD) Immunizations Current: Yes Myocardial Infarction: Yes (2016) Tetanus Vaccination: Unknown Tubal Ligation: Yes Past Surgical History Abdominal Surgery: Yes Appendectomy: Yes Coronary Artery Bypass Graft: No Tonsillectomy: Yes Other Surgery: Yes Family History Family Myocardial Infarction: Yes Social History Alcohol Use: Yes (6-12 beers per day) Tobacco Use: Yes (almost two packs per day) Substance Use: Yes (cocaine last used yesterday) Allergies-Medications (Allergen,Severity, Reaction): Coded Allergies: penicillin G (Unverified Allergy, Severe, 11/21/16) Reported Meds & Prescriptions Reported Meds & Active Scripts Active Reported Stiolto Respimat Inh (Tiotropium-Olodaterol Inh) 2.5-2.5 Mcg/Act Aero 2 Puff INH DAILY Rosuvastatin (Rosuvastatin Calcium) 20 Mg Tab 20 Mg PO HS Nitroglycerin SL (Nitroglycerin) 0.4 Mg Subl 0.4 Mg SL DIRECTED PRN ONE TABLET UNDER THE TONGUE NEEDED FOR CHEST PAIN, MAY REPEAT EVERY FIVE MINUTES FOR A TOTAL OF 3 DOSES OR CALL 911 IF NO RELIEF Carvedilol 6.25 Mg Tab 6.25 Mg PO BID Ranexa ER 12 HR (Ranolazine) 500 Mg Tab 500 Mg PO BID Ramipril 2.5 Mg Cap 2.5 Mg PO DAILY Aspirin Low Dose (Aspirin) 81 Mg Chew 81 Mg CHEW DAILY Plavix (Clopidogrel Bisulfate) 75 Mg Tab 75 Mg PO DAILY Review of Systems Except as stated in HPI: all other systems reviewed are Neg Physical Exam Narrative GENERAL: Well-developed, well-nourished, comfortable, no apparent distress. SKIN: Focused skin assessment warm/dry. HEAD: Atraumatic. Normocephalic. EYES: Pupils equal and round. No scleral icterus. No injection or drainage. ENT: Mucous membranes pink and moist. NECK: Trachea midline. No JVD. CARDIOVASCULAR: Regular rate and rhythm. Distal pulses brisk and equal bilaterally. RESPIRATORY: No accessory muscle use. Clear to auscultation. Breath sounds equal bilaterally. GASTROINTESTINAL: Abdomen soft, non-tender, nondistended. MUSCULOSKELETAL: No obvious deformities. No clubbing. No cyanosis. No edema. NEUROLOGICAL: Awake and alert. No obvious cranial nerve deficits. Motor grossly within normal limits. Normal speech. PSYCHIATRIC: Appropriate mood and affect; insight and judgment normal. Data Data Last Documented VS Vital Signs Date Time Temp Pulse Resp B/P (MAP) Pulse Ox O2 Delivery O2 Flow Rate FiO2 11/21/16 23:39 75 19 98 Room Air 11/21/16 23:32 98.6 114/76 (89) Orders Orders Basic Metabolic Panel (Bmp) (11/21/16 23:41) Ckmb (Isoenzyme) Profile (11/21/16 23:41) Complete Blood Count With Diff (11/21/16 23:41) Magnesium (Mg) (11/21/16 23:41) Prothrombin Time / Inr (Pt) (11/21/16 23:41) Act Partial Throm Time (Ptt) (11/21/16 23:41) Troponin I (11/21/16 23:41) Chest, Single Ap (11/21/16 23:41) Ecg Monitoring (11/21/16 23:41) Iv Access Insert/Monitor (11/21/16 23:41) Oximetry (11/21/16 23:41) Aspirin Chew (Aspirin Chew) (11/21/16 23:45) Sodium Chloride 0.9% Flush (Ns Flush) (11/21/16 23:45) Nitroglycerin Sl (Nitrostat Sl) (11/21/16 23:45) Lipase (11/21/16 23:41) Drug Screen, Random Urine (11/21/16 23:41) Potassium Chloride (Kcl) (11/22/16 01:00) Labs Laboratory Tests Test 11/21/16 23:50 11/22/16 00:30 White Blood Count 7.7 TH/MM3 Red Blood Count 4.34 MIL/MM3 Hemoglobin 14.5 GM/DL Hematocrit 41.9 % Mean Corpuscular Volume 96.6 FL Mean Corpuscular Hemoglobin 33.4 PG Mean Corpuscular Hemoglobin Concent 34.6 % Red Cell Distribution Width 13.0 % Platelet Count 200 TH/MM3 Mean Platelet Volume 8.0 FL Neutrophils (%) (Auto) 59.9 % Lymphocytes (%) (Auto) 29.8 % Monocytes (%) (Auto) 7.2 % Eosinophils (%) (Auto) 2.7 % Basophils (%) (Auto) 0.4 % Neutrophils # (Auto) 4.6 TH/MM3 Lymphocytes # (Auto) 2.3 TH/MM3 Monocytes # (Auto) 0.6 TH/MM3 Eosinophils # (Auto) 0.2 TH/MM3 Basophils # (Auto) 0.0 TH/MM3 CBC Comment DIFF FINAL Differential Comment Prothrombin Time 10.7 SEC Prothromb Time International Ratio 1.0 RATIO Activated Partial Thromboplast Time 25.2 SEC Blood Urea Nitrogen 13 MG/DL Creatinine 0.92 MG/DL Random Glucose 83 MG/DL Calcium Level 8.3 MG/DL Magnesium Level 1.8 MG/DL Sodium Level 139 MEQ/L Potassium Level 3.1 MEQ/L Chloride Level 107 MEQ/L Carbon Dioxide Level 21.8 MEQ/L Anion Gap 10 MEQ/L Estimat Glomerular Filtration Rate 84 ML/MIN Total Creatine Kinase 66 U/L Troponin I LESS THAN 0.02 NG/ML Lipase 155 U/L Urine Opiates Screen NEG Urine Barbiturates Screen NEG Urine Amphetamines Screen NEG Urine Benzodiazepines Screen NEG Urine Cocaine Screen POS Urine Cannabinoids Screen NEG MDM Medical Decision Making Medical Screen Exam Complete: Yes Emergency Medical Condition: Yes Medical Record Reviewed: Yes Interpretation(s) EKG: Sinus, rate 84, normal axis, normal intervals, nonspecific T-wave abnormality, no ST segment abnormalities. Differential Diagnosis ACS, pneumothorax, peritonitis, PE, pneumonia, cocaine chest pain, malingering Narrative Course Vital signs reviewed and are within normal limits. CBC is unremarkable. CMP is unremarkable. Urine drug screen is positive for cocaine. Chest x-ray: No acute disease. Patient was made aware of all findings. He was given a full aspirin and sublingual nitroglycerin. On reassessment he is sleeping comfortably, however when I wake him up he continues to complain of chest pain. He will be admitted to the chest pain center for further cardiac evaluation. Diagnosis Primary Impression: Chest pain Qualified Codes: R07.9 - Chest pain, unspecified Additional Impression: Cocaine abuse Admitting Information Admitting Physician Requests: Rosas Rayo MD Nov 22, 2016 00:11
[2016-11-22 00:13] LABS: AUTOMATED NEUTROPHIL # 4.6 TH/MM3 (1.8-7.7); BASOPHIL % 0.4 % (0.0-2.0); EOSINOPHIL # 0.2 TH/MM3 (0-0.4); EOSINOPHIL % 2.7 % (0.0-4.0); HEMATOCRIT 41.9 % (39.0-51.0); HEMO FLAGS DIFF FINAL; LYMPH % 29.8 % (9.0-44.0); LYMPHOCYTE # 2.3 TH/MM3 (1.0-4.8); MEAN CELL VOLUME 96.6 FL (80.0-100.0); MEAN CORPUSCULAR HEMOGLOBIN 33.4 PG (27.0-34.0); MEAN CORPUSCULAR HGB CONC 34.6 % (32.0-36.0); MONO % 7.2 % (0.0-8.0); NEUT % 59.9 % (16.0-70.0); PLATELET COUNT 200 TH/MM3 (150-450); RED BLOOD COUNT 4.34 MIL/MM3 (4.50-5.90); WHITE BLOOD COUNT 7.7 TH/MM3 (4.0-11.0)
[2016-11-22 00:20] LABS: APTT (PATIENT) 25.2 SEC (24.3-30.1); PROTHROMBIN TIME - PATIENT 10.7 SEC (9.8-11.6)
[2016-11-22 00:27] LABS: ANION GAP 10 MEQ/L (5-15); BICARBONATE 21.8 MEQ/L (21.0-32.0); BLOOD UREA NITROGEN 13 MG/DL (7-18); CHLORIDE 107 MEQ/L (98-107); GLOMERULAR FILTRATION RATE 84 ML/MIN (>89); MAGNESIUM 1.8 MG/DL (1.5-2.5); POTASSIUM 3.1 MEQ/L (3.5-5.1); SODIUM (NA) 139 MEQ/L (136-145)
--- NOTE | 2016-11-22 00:31 | RADRPT ---
EXAM DATE/TIME: 11/22/2016 00:03 [facility] COMPARISON: CHEST SINGLE AP, October 30, 2016, 3:38. INDICATIONS : Chest and back pain in mid level of chest. MEDICAL HISTORY : None. SURGICAL HISTORY : None. ENCOUNTER: Initial ACUITY: 1 day PAIN SCORE: 0/10 LOCATION: Bilateral chest FINDINGS: A single view of the chest demonstrates the lungs to be symmetrically aerated without evidence of mas s, infiltrate or effusion. The cardiomediastinal contours are unremarkable. Osseous structures are intact. CONCLUSION: 1. No acute cardiopulmonary disease. Oj Valdez MD on November 22, 2016 at 0:29 Board Certified Radiologist. This report was verified electronically.
[2016-11-22 00:45] LABS: CREATINE KINASE 66 U/L (39-308)
[2016-11-22 01:00] VITALS: BP 116/73; PULSE 82; RESP 21; O2SAT 97
[2016-11-22] MEDS ORDERED: POTASSIUM CHLORIDE 20 MEQ CONTROLLED RELEASE TAB PO ONE (01:00)
[2016-11-22] MEDS ORDERED: SODIUM CHLORIDE 0.9% FLUSH 10 ML FLUSH IV FLUSH PRN (02:15)
[2016-11-22 03:36] VITALS: BP 128/83; PULSE 80; RESP 18; TEMP 97.4; O2SAT 96
[2016-11-22 03:58] LABS: CREATINE KINASE 87 U/L (39-308)
[2016-11-22 07:33] LABS: CREATINE KINASE 57 U/L (39-308)
[2016-11-22 08:00] VITALS: BP 127/78; PULSE 82; PULSE 84; RESP 18; TEMP 97.9; O2SAT 95
--- NOTE | 2016-11-22 08:50 | HHI.HP ---
HPI Primary Care Physician [id number] in [place], [place] Chief Complaint Chest pain History of Present Illness 61-year-old male with history of CAD, hypertension, hyperlipidemia, and cocaine use presents to emergency room for further evaluation of chest pain. Onset 1 week ago. Location substernal. Characterized as sharp. Nonexertional. No radiation of pain. No associated symptoms. Duration intermittent, vague with length chest discomfort lasts. No known precipitating or relieving factors. Endorses similar pain in the past. Hurts to take a deep breath. No particular movement or position makes pain better or worse. Review of Systems General: No fatigue,weakness, fever, chills, or recent illness. HEENT: No TAVERAS, no nasal congestion or drainage CV: As stated above. No current CP or pressure. RESP: Nonproductive cough x1 week. Reports "smokes cough" unchanged. No SOB, wheeze, or hemoptysis GI: No nausea, vomiting, bowel changes, diarrhea, pain, melena, or blood in the stool. : No dysuria EXT: No lower leg edema, no paraesthesias MS: No discomfort or change in ROM, no injury, recent fall, or known trauma NEURO: No difficulty with balance, LOC, motor/sensory deficits PSYCH: No anxiety, depression, or suicidal ideation. 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 SKIN: No rashes, no concerning lesions Past Family Social History Allergies: Coded Allergies: penicillin G (Unverified Allergy, Severe, 11/21/16) Past Medical History Hypertension, [place] 1, hyperlipidemia, TIA, COPD Past Surgical History Appendectomy, tonsillectomy Reported Medications Active Reported Stiolto Respimat Inh (Tiotropium-Olodaterol Inh) 2.5-2.5 Mcg/Act Aero 2 Puff INH DAILY Rosuvastatin (Rosuvastatin Calcium) 20 Mg Tab 20 Mg PO HS Nitroglycerin SL (Nitroglycerin) 0.4 Mg Subl 0.4 Mg SL DIRECTED PRN ONE TABLET UNDER THE TONGUE NEEDED FOR CHEST PAIN, MAY REPEAT EVERY FIVE MINUTES FOR A TOTAL OF 3 DOSES OR CALL 911 IF NO RELIEF Carvedilol 6.25 Mg Tab 6.25 Mg PO BID Ranexa ER 12 HR (Ranolazine) 500 Mg Tab 500 Mg PO BID Ramipril 2.5 Mg Cap 2.5 Mg PO DAILY Aspirin Low Dose (Aspirin) 81 Mg Chew 81 Mg CHEW DAILY Plavix (Clopidogrel Bisulfate) 75 Mg Tab 75 Mg PO DAILY Active Ordered Medications Current Medications Medications (Trade) Dose Ordered Sig/Eron Route Start Time Stop Time Status Last Admin (NS Flush) 2 ml UNSCH PRN IVF 11/21/16 23:45 (NS Flush) 2 ml UNSCH PRN IV FLUSH 11/22/16 02:15 (NS Flush) 2 ml BID IV FLUSH 11/22/16 09:00 Family History Noncontributory for early onset cardiovascular disease. Social History Known hypertension, hyperlipidemia, and coronary artery disease. No known diabetes. Continues to smoke tobacco, use cocaine, and drink alcohol. Reports to pack cigarettes daily. Case of beer daily and "occasional cocaine." Single. Past Cardiac Testing August 2015-Cardiac catheterization ([facility] in [place], [place]) NSTEMI. Reports arteries were too small for intervention. He was unhappy with first cardiac catheterization therefore request a second opinion. Second cardiac catheterization completed the same week, again revealing areas were too small for intervention and was told "I had plenty of collaterals." Has not seen a psychological assistant spring 2016, nor has he establish with a local psychological assistant. Has been seen in Chest pain center multiple times. Has not established with a local psychological assistant. No recent stress testing. Physical Exam Vital Signs Vital Signs Date Time Temp Pulse Resp B/P (MAP) Pulse Ox O2 Delivery O2 Flow Rate FiO2 11/22/16 08:00 97.9 82 18 127/78 (94) 95 11/22/16 06:33 21 11/22/16 03:36 97.4 80 18 128/83 (98) 96 11/22/16 02:27 11/22/16 01:00 82 21 116/73 (87) 97 Room Air 11/21/16 23:39 75 19 98 Room Air 11/21/16 23:32 98.6 82 22 114/76 (89) 97 Physical Exam GENERAL: Alert WN, WD, NAD, male who appears older than stated age NECK: Supple, no masses, trachea midline CV: RRR, without murmur, rub, gallop, no JVD, S1-S2 no S3-S4. RESP: Diminished throughout bilateral, no crackles, no wheeze, rhonchi cleared with coughing, symmetrical chest rise, nonlabored, able to speak in full sentences ABD: Soft, NT, ND, no masses, positive bowel tones EXT: Pulses +24 MS: Normal tone 4 extremities, nontender, no obvious deformities, full range of motion NEURO: CN II through CN XII grossly intact, motor strength 5/5 PSYCH: A+O 3, flat affect, appropriate speech, appropriate mood and affect, insight and judgment SKIN: Normal turgor, normal texture, no lesions, no rashes Laboratory Laboratory Tests Test 11/21/16 23:50 11/22/16 00:30 11/22/16 02:52 11/22/16 04:55 White Blood Count 7.7 Red Blood Count 4.34 Hemoglobin 14.5 Hematocrit 41.9 Mean Corpuscular Volume 96.6 Mean Corpuscular Hemoglobin 33.4 Mean Corpuscular Hemoglobin Concent 34.6 Red Cell Distribution Width 13.0 Platelet Count 200 Mean Platelet Volume 8.0 Neutrophils (%) (Auto) 59.9 Lymphocytes (%) (Auto) 29.8 Monocytes (%) (Auto) 7.2 Eosinophils (%) (Auto) 2.7 Basophils (%) (Auto) 0.4 Neutrophils # (Auto) 4.6 Lymphocytes # (Auto) 2.3 Monocytes # (Auto) 0.6 Eosinophils # (Auto) 0.2 Basophils # (Auto) 0.0 CBC Comment DIFF FINAL Differential Comment Prothrombin Time 10.7 Prothromb Time International Ratio 1.0 Activated Partial Thromboplast Time 25.2 Blood Urea Nitrogen 13 Creatinine 0.92 Random Glucose 83 Calcium Level 8.3 Magnesium Level 1.8 Sodium Level 139 Potassium Level 3.1 Chloride Level 107 Carbon Dioxide Level 21.8 Anion Gap 10 Estimat Glomerular Filtration Rate 84 Total Creatine Kinase 66 87 57 Troponin I LESS THAN 0.02 LESS THAN 0.02 LESS THAN 0.02 Lipase 155 Urine Opiates Screen NEG Urine Barbiturates Screen NEG Urine Amphetamines Screen NEG Urine Benzodiazepines Screen NEG Urine Cocaine Screen POS Urine Cannabinoids Screen NEG Result Diagram: 11/21/[id number] Imaging Last Impressions Chest X-Ray 11/21/162340 Signed Impressions: Service Date/Time: Tuesday, November 22, 2016 00:03 - CONCLUSION: 1. No acute cardiopulmonary disease. Oj Valdez MD Course EKG Normal sinus rhythm, normal axis, nonspecific T-wave change Caprini VTE Risk Assessment Caprini VTE Risk Assessment: Mod/High Risk (score >= 2) Caprini Risk Assessment Model Point Value = 1 Point Value = 2 Point Value = 3 Point Value = 5 Age 41-60 Minor surgery BMI > 25 kg/m2 Swollen legs Varicose veins or History of unexplained or recurrent spontaneous Oral contraceptives or hormone replacement Sepsis (< 1 month) Serious lung disease, including pneumonia (< 1 month) Abnormal pulmonary function Acute myocardial infarction Congestive heart failure (< 1 month) History of inflammatory bowel disease Medical patient at bed rest Age 61-74 Arthroscopic surgery Major open surgery (> 45 min) Laparoscopic surgery (> 45 min) Malignancy Confined to bed (> 72 hours) Immobilizing plaster cast Central venous access Age >= 75 History of VTE Family history of VTE Factor V Leiden Prothrombin [id number] Lupus anticoagulant Anticardiolipin antibodies Elevated serum homocysteine Heparin-induced thrombocytopenia Other congenital or acquired thrombophilia Stroke (< 1 month) Elective arthroplasty Hip, pelvis, or leg fracture Acute spinal cord injury (< 1 month) Prophylaxis Regimen Total Risk Factor Score Risk Level Prophylaxis Regimen 0-1 Low Early ambulation 2 Moderate Order ONE of the following: *Sequential Compression Device (SCD) *Heparin 5000 units SQ BID 3-4 Higher Order ONE of the following medications: *Heparin 5000 units SQ TID *Enoxaparin/Lovenox 40 mg SQ daily (WT < 150 kg, CrCl > 30 mL/min) *Enoxaparin/Lovenox 30 mg SQ daily (WT < 150 kg, CrCl > 10-29 mL/min) *Enoxaparin/Lovenox 30 mg SQ BID (WT < 150 kg, CrCl > 30 mL/min) AND/OR *Sequential Compression Device (SCD) 5 or more Highest Order ONE of the following medications: *Heparin 5000 units SQ TID (Preferred with Epidurals) *Enoxaparin/Lovenox 40 mg SQ daily (WT < 150 kg, CrCl > 30 mL/min) *Enoxaparin/Lovenox 30 mg SQ daily (WT < 150 kg, CrCl > 10-29 mL/min) *Enoxaparin/Lovenox 30 mg SQ BID (WT < 150 kg, CrCl > 30 mL/min) AND *Sequential Compression Device (SCD) Assessment and Plan Assessment and Plan #1 Atypical chest pain-admitted to chest pain center. Ruled out with 3 sets of EKGs, cardiac enzymes, and monitored overnight. Sen and evaluated by Dr. Janelle Scruggs. Complete nuclear treadmill stress test and attempt to obtain medical records from previous catheterization. If Lexiscan unremarkable, discharge this afternoon. Instructed to find a local psychological assistant and PCP. Stress importance of medication compliance. #2 Tobacco use-strongly encouraged and stressed the importance of tobacco cessation. Instructed to quit smoking. #3 Cocaine use-education reinforced on risks of cocaine, included but not limited to [place] or even #4 Alcohol use-encouraged decreasing alcohol intake, discussed potential long term care social worker effects of alcohol abuse, discussed stopping alcohol intake and joining a support group for alcohol cessation. #5 History of CAD-continue Ranexa, Coreg, Rosuvastatin, Plavix mE Martin Nov 22, 2016 08:50
[2016-11-22] MEDS ORDERED: SODIUM CHLORIDE 0.9% FLUSH 10 ML FLUSH IV FLUSH SCH (09:00)
[2016-11-22] MEDS ORDERED: NITROGLYCERIN 0.4 MG SL 25 TABS/BTL SL PRN (09:00)
[2016-11-22] MEDS ORDERED: ACETAMINOPHEN 500 MG CPLT PO PRN (09:00)
[2016-11-22] MEDS ORDERED: ONDANSETRON HCL 4 MG/2 ML VIAL IV PRN (09:00)
[2016-11-22] MEDS ORDERED: RESP: ALBUTEROL 2.5 MG/3 ML NEB (PRN) NEB (09:00)
[2016-11-22] MEDS ORDERED: ASPIRIN 325 MG TAB PO SCH (09:00)
[2016-11-22] MEDS ORDERED: CLOPIDOGREL 75 MG TAB PO SCH (10:00)
[2016-11-22] MEDS ORDERED: RAMIPRIL 2.5 MG CAP PO SCH (10:00)
[2016-11-22] MEDS ORDERED: STIOLTO RESPIMAT INH SCH (11:00)
[2016-11-22] MEDS ORDERED: REGADENOSON INJ 0.4 MG/5 ML SYR ONE (11:21)
[2016-11-22] MEDS ORDERED: RESP: ALBUTEROL 2.5 MG/IPRATROPIUM 0.5 MG NEB (SCH) ONE (11:21)
[2016-11-22 12:36] VITALS: BP 134/84; PULSE 98; RESP 20; TEMP 98.2; O2SAT 96
[2016-11-22] MEDS ORDERED: CARVEDILOL 6.25 MG TAB PO SCH (12:45)
[2016-11-22] MEDS ORDERED: RANOLAZINE 500 MG EXTENDED RELEASE TAB PO SCH (12:45)
--- NOTE | 2016-11-22 12:49 | RADRPT ---
EXAM DATE/TIME: 11/22/2016 10:00 [facility] COMPARISON: No previous studies available for comparison. INDICATIONS : Mid chest pain radiating to the back for one day. Angina. DOSE: 26.8 mCi Tc99m Myoview at stress. 8.8 mCi Tc99m Myoview at rest. 0.4 mg Lexiscan STRESS SYMPTOMS: Nausea and dyspnea. EJECTION FRACTION: 61% MEDICAL HISTORY : Myocardial infarction. Hypertension. Chronic obstructive pulmonary disease. SURGICAL HISTORY : None. ENCOUNTER: Initial ACUITY: 1 day PAIN SCALE: 5/10 LOCATION: Midsternal chest TECHNIQUE: The patient underwent pharmacologic stress with infusion of prescribed dose. Continuous ECG tracing was monitored during stress. Gated SPECT imaging was performed after stress and conventional SPECT i maging was performed at rest. The examination was performed on a SPECT/CT scanner, both attenuation and non-corrected datasets were reviewed. FINDINGS: DISTRIBUTION: The maximum perfused segment at stress is in the inferior wall. PERFUSION STUDY: Old anterior infarct. No stress induced ischemia seem GATED STUDY: Mild septal hypokinesia. Overall left ventricular ejection fraction within normal limits. CONCLUSION: Previous anterior infarct. No stress-induced ischemia or other acute abnormality seen . RISK CATEGORY: Low Douglas Leblanc MD on November 22, 2016 at 12:43 Board Certified Radiologist. This report was verified electronically.
--- NOTE | 2016-11-22 12:58 | HHI.DCPOC ---
Discharge Care Plan Diagnosis: (1) Atypical chest pain (2) Hx of coronary artery disease (3) Tobacco abuse (4) Cocaine abuse (5) Alcohol abuse (6) Hypokalemia Goals to Promote Your Health * To prevent worsening of your condition and complications * To maintain your health at the optimal level Directions to Meet Your Goals Take your medications as prescribed Follow your dietary instruction Follow activity as directed Keep your appointments as scheduled Take your immunizations and boosters as scheduled If your symptoms worsen call your PCP, if no PCP go to Urgent Care Center or Emergency Room Smoking is Dangerous to Your Health. Avoid second hand smoke Call the 24-hour hour crisis hotline for domestic abuse at Em Martin Nov 22, 2016 12:58
--- NOTE | 2016-11-22 16:59 | TR ---
Date Performed: 11/22/2016 Time Performed: 11:24:19 DOCTOR: Janelle Scruggs DRUG LIST: CLINICAL HISTORY: REASON FOR TEST: CHEST PAIN REASON FOR ENDING: OBSERVATION: CONCLUSION: Lexiscan stress test was performed under standard four minute protocol. Radionuclid e was injected one minute prior to ending the test. No electrocardiographic abormalities were present to suggest ischemia. Nuclear imaging and interpretation are pending. COMMENTS:
--- NOTE | 2016-11-22 17:01 | EKG ---
Date Performed: 11/22/2016 Time Performed: 05:47:05 PTAGE: 61 years EKG: Sinus rhythm NONSPECIFIC T-WAVE ABNORMALITY BORDERLINE ECG Since PREVIOUS TRACING , no significant change noted PREVIOUS TRACIN11/22/2016 03.04 DOCTOR: Janelle Scruggs Interpretating Date/Time 11/24/2016 06:30:34
--- NOTE | 2016-11-22 17:02 | EKG ---
Date Performed: 11/22/2016 Time Performed: 03:04:23 PTAGE: 61 years EKG: Sinus rhythm NONSPECIFIC T-WAVE ABNORMALITY BORDERLINE ECG Since PREVIOUS TRACING , no significant change noted PREVIOUS TRACIN11/21/2016 23.30 DOCTOR: Janelle Scruggs Interpretating Date/Time 11/22/2016 17:01:37
--- NOTE | 2016-11-22 17:03 | EKG ---
Date Performed: 11/21/2016 Time Performed: 23:30:09 PTAGE: 61 years EKG: Sinus rhythm NONSPECIFIC T-WAVE ABNORMALITY BORDERLINE ECG Since PREVIOUS TRACING , no significant change noted PREVIOUS TRACIN10/30/2016 09.42 DOCTOR: Janelle Scruggs Interpretating Date/Time 11/22/2016 17:02:24
== END 2016-11-22 14:36 | disposition home or self-care (01) ==
LOC: NEPE 23:25 → NEDA 11-22 01:22 → NEPGCP 11-22 02:32
PROVIDERS: ADMIT Internal Medicine Cardiovascular Disease; ATTEND Internal Medicine Cardiovascular Disease
DX: R07.9 Chest pain, unspecified (principal); I10 Essential (primary) hypertension; I25.10 Atherosclerotic heart disease of native coronary artery without angina pectoris; R94.31 Abnormal electrocardiogram [ECG] [EKG]; I25.2 Old myocardial infarction; F14.10 Cocaine abuse, uncomplicated; F10.10 Alcohol abuse, uncomplicated; E87.6 Hypokalemia; F17.210 Nicotine dependence, cigarettes, uncomplicated
CPT/HCPCS: 71010; 78452; 80048; 80307; 82550; 83690; 83735; 84484; 85025; 85610; 85730; 93005; 93017; 99285; A9502; G0378; J2785

== ENCOUNTER 2017-07-02 23:41 | Emergency (ER) | payer BC ==
[~2017-07-02] VITALS: Ht 180.3 cm; Wt 88.0 kg
[~2017-07-02 23:41] MED LIST changes: -ASPI81CH37 CHEW; +ASPI81CH6 CHEW
[2017-07-02 23:48] VITALS: BP 119/75; PULSE 85; RESP 18; TEMP 97.9; O2SAT 94
[2017-07-03 00:28] VITALS: BP 125/77; PULSE 84; RESP 18; O2SAT 96
[2017-07-03] MEDS ORDERED: SODIUM CHLORIDE 0.9% FLUSH 10 ML FLUSH IVF PRN (00:30)
[2017-07-03] MEDS ORDERED: LORazepam 2 MG/ML VIAL IV PUSH ONE (00:30)
[2017-07-03 01:01] LABS: AUTOMATED NEUTROPHIL # 4.2 TH/MM3 (1.8-7.7); BASOPHIL # 0.1 TH/MM3 (0-0.2); BASOPHIL % 0.8 % (0.0-2.0); EOSINOPHIL # 0.4 TH/MM3 (0-0.4); EOSINOPHIL % 5.3 % (0.0-4.0); HEMATOCRIT 44.5 % (39.0-51.0); LYMPH % 31.4 % (9.0-44.0); LYMPHOCYTE # 2.3 TH/MM3 (1.0-4.8); MEAN CELL VOLUME 94.2 FL (80.0-100.0); MEAN CORPUSCULAR HEMOGLOBIN 33.9 PG (27.0-34.0); MEAN PLATELET VOLUME 7.9 FL (7.0-11.0); MONO % 5.9 % (0.0-8.0); MONOCYTE # 0.4 TH/MM3 (0-0.9); NEUT % 56.6 % (16.0-70.0); PLATELET COUNT 215 TH/MM3 (150-450); RED BLOOD COUNT 4.72 MIL/MM3 (4.50-5.90); RED CELL DISTRIBUTION WIDTH 12.8 % (11.6-17.2); WHITE BLOOD COUNT 7.4 TH/MM3 (4.0-11.0)
[2017-07-03 01:08] VITALS: O2SAT 96
--- NOTE | 2017-07-03 01:11 | PD ---
HPI . Shortness of breath Chief Complaint: Respiratory Symptoms Time Seen by Provider: 00:27 Travel History International Travel<30 days: No Contact w/Intl Traveler<30days: No Traveled to known affect area: No History of Present Illness HPI This patient presents with a chief complaint of chest pain and shortness of breath. He states that he has a long-standing cardiac history and developed chest tightness and shortness of breath earlier today. The symptoms are mild. He believes that his symptoms are related to a skin infection on his right forearm. His second complaint is a lesion on his right forearm. It has been there for approximately 5 days. It is getting better. He states that he went to urgent care about his day and that the doctor wanted to prescribe him Bactrim but was concerned about his cardiac history. He states that the urgent care doctor suggested that he come to the emergency department. He has had a subjective fever. He has been treating it at home with local cleansing and Neosporin ointment. There has been no drainage. He states that he did have lymphangitis but that the lymphangitis has resolved. PFSH Past Medical History Hx Anticoagulant Therapy: Yes (Plavix) Heart Rhythm Problems: Yes Cardiac Catheterization: Yes Cardiovascular Problems: Yes High Cholesterol: No Chest Pain: Yes Congestive Heart Failure: No COPD: Yes Cerebrovascular Accident: Yes Diabetes: No Diminished Hearing: No Heparin Induced Thrombocytopen: No Hypertension: Yes Neurologic: Yes Respiratory: Yes (COPD) Immunizations Current: Yes Myocardial Infarction: Yes (2016) Tetanus Vaccination: Unknown Influenza Vaccination: Yes Tubal Ligation: Yes Past Surgical History Abdominal Surgery: Yes Appendectomy: Yes Coronary Artery Bypass Graft: No Tonsillectomy: Yes Other Surgery: Yes Family History Family Myocardial Infarction: Yes (MOTHER AND FATHER HAD [place]) Social History Alcohol Use: Yes (6-12 beers per day) Tobacco Use: Yes (almost two packs per day) Substance Use: Yes (cocaine occasionally) Allergies-Medications (Allergen,Severity, Reaction): Coded Allergies: penicillin G (Unverified Allergy, Severe, 07/02/17) Reported Meds & Prescriptions Reported Meds & Active Scripts Active Reported Stiolto Respimat Inh (Tiotropium-Olodaterol Inh) 2.5-2.5 Mcg/Act Aero 2 Puff INH DAILY Rosuvastatin (Rosuvastatin Calcium) 20 Mg Tab 20 Mg PO HS Nitroglycerin SL (Nitroglycerin) 0.4 Mg Subl 0.4 Mg SL DIRECTED PRN ONE TABLET UNDER THE TONGUE NEEDED FOR CHEST PAIN, MAY REPEAT EVERY FIVE MINUTES FOR A TOTAL OF 3 DOSES OR CALL 911 IF NO RELIEF Carvedilol 6.25 Mg Tab 6.25 Mg PO BID Ranexa ER 12 HR (Ranolazine) 500 Mg Tab 500 Mg PO BID Ramipril 2.5 Mg Cap 2.5 Mg PO DAILY Aspirin Low Dose (Aspirin) 81 Mg Chew 81 Mg CHEW DAILY Plavix (Clopidogrel Bisulfate) 75 Mg Tab 75 Mg PO DAILY Review of Systems Except as stated in HPI: all other systems reviewed are Neg Cardiovascular: Positive: Chest Pain or Discomfort Respiratory: Positive: Shortness of Breath Skin: Positive Lesions Physical Exam Narrative GENERAL: Patient is awake and alert and smiling and in no distress. SKIN: warm/dry. There is a lesion on his right forearm which is about the size of a quarter. There is no significant induration, fluctuance, erythema surrounding the lesion, lymphangitis or lymphadenopathy. It is starting to granulate. HEAD: Normocephalic. Atraumatic. EYES: Pupils equal and round. No scleral icterus. No injection or drainage. ENT: No nasal bleeding or discharge. Mucous membranes pink and moist. NECK: Trachea midline. Full range of motion without pain.. CARDIOVASCULAR: Regular rate and rhythm. Heart sounds normal. RESPIRATORY: No accessory muscle use. Clear to auscultation. Breath sounds equal bilaterally. MUSCULOSKELETAL: No obvious deformities. NEUROLOGICAL: Awake and alert. No obvious cranial nerve deficits. Motor grossly within normal limits. Normal speech. PSYCHIATRIC: Appropriate mood and affect; insight and judgment normal. Data Data Last Documented VS Vital Signs Date Time Temp Pulse Resp B/P (MAP) Pulse Ox O2 Delivery O2 Flow Rate FiO2 07/03/17 01:08 96 07/03/17 00:28 84 18 Room Air 07/02/17 23:48 97.9 Orders Orders Electrocardiogram (07/03/17 00:28) Basic Metabolic Panel (Bmp) (07/03/17 00:28) B-Type Natriuretic Peptide (07/03/17:28) Complete Blood Count With Diff (07/03/17 00:28) Magnesium (Mg) (07/03/17 00:28) Troponin I (07/03/17:28) Ecg Monitoring (07/03/17 00:28) Iv Access Insert/Monitor (07/03/17 00:28) Oximetry (07/03/17 00:28) Sodium Chloride 0.9% Flush (Ns Flush) (07/03/17 00:30) Chest, Pa & Lat (07/03/17 00:28) Lactic Acid (07/03/17 00:28) Blood Culture (07/03/17 00:28) Lorazepam Inj (Ativan Inj) (07/03/17 00:30) Labs Laboratory Tests Test 07/03/17 00:47 White Blood Count 7.4 TH/MM3 Red Blood Count 4.72 MIL/MM3 Hemoglobin 16.0 GM/DL Hematocrit 44.5 % Mean Corpuscular Volume 94.2 FL Mean Corpuscular Hemoglobin 33.9 PG Mean Corpuscular Hemoglobin Concent 36.0 % Red Cell Distribution Width 12.8 % Platelet Count 215 TH/MM3 Mean Platelet Volume 7.9 FL Neutrophils (%) (Auto) 56.6 % Lymphocytes (%) (Auto) 31.4 % Monocytes (%) (Auto) 5.9 % Eosinophils (%) (Auto) 5.3 % Basophils (%) (Auto) 0.8 % Neutrophils # (Auto) 4.2 TH/MM3 Lymphocytes # (Auto) 2.3 TH/MM3 Monocytes # (Auto) 0.4 TH/MM3 Eosinophils # (Auto) 0.4 TH/MM3 Basophils # (Auto) 0.1 TH/MM3 CBC Comment AUTO DIFF Differential Comment AUTO DIFF CONFIRMED Platelet Estimate NORMAL Platelet Morphology Comment ENLARGED Blood Urea Nitrogen 13 MG/DL Creatinine 0.99 MG/DL Random Glucose 106 MG/DL Calcium Level 9.1 MG/DL Magnesium Level 2.2 MG/DL Sodium Level 140 MEQ/L Potassium Level 3.8 MEQ/L Chloride Level 104 MEQ/L Carbon Dioxide Level 29.3 MEQ/L Anion Gap 7 MEQ/L Estimat Glomerular Filtration Rate 77 ML/MIN Lactic Acid Level 0.9 mmol/L Troponin I LESS THAN 0.02 NG/ML B-Type Natriuretic Peptide 18 PG/ML MDM Medical Decision Making Medical Screen Exam Complete: Yes Emergency Medical Condition: Yes Interpretation(s) EKG has a normal sinus rhythm with no acute ischemic changes Differential Diagnosis Differential diagnosis of chest pain includes but is not limited to musculoskeletal pain, pulmonary embolism, acute coronary syndrome, pneumonia, pleurisy Differential diagnosis of dyspnea includes but is not limited to congestive heart failure, pneumonia, wheezing, pneumothorax, pulmonary embolism My differential diagnosis includes but is not limited to localized wound infection, cellulitis, abscess Narrative Course This patient presents with 2 complaints. His chief complaint is chest pain or shortness of breath. He reports a long-standing history of heart disease with similar symptoms. He looks well. He is smiling and in no distress. His lungs are clear. Routine cardiac evaluation is in process. His second complaint is a lesion on the right forearm. It actually appears to be healing. I have ordered a lactic acid and blood cultures as well as the CBC and chemistries which were ordered to evaluate his chest pain shortness of breath. CBC & BMP Diagram 07/03/17 00:47 Calcium Level 9.1, Magnesium Level 2.2 trop < 0.02 BNP 18 LA 0.9 Last Impressions Chest X-Ray 07/03/17 0028 Signed Impressions: Service Date/Time: Monday, July 03, 2017 01:04 - CONCLUSION: Minimal left base atelectasis. Otherwise negative. Douglas Leblanc MD The chest x-ray was independently reviewed by me. This patient has no evidence of ACS, CHF or sepsis. I will discharge him to home with a prescription for doxycycline. Diagnosis Primary Impression: Chest pain Qualified Codes: R07.9 - Chest pain, unspecified Additional Impressions: Dyspnea Qualified Codes: R06.00 - Dyspnea, unspecified Skin lesion Additional Instructions: Continue local wound care Med/Other Pt SpecificInfo: Prescription(s) given Scripts Doxycycline Hyclate (Doxycycline Hyclate) 100 Mg Cap 100 MG PO BID for Infection for 7 Days, #14 CAP 0 Refills Prov: Arlyn Daniel MD 07/03/17 Disposition: DISCHARGE HOME Condition: Stable Arlyn Daniel MD Jul 03, 2017 01:11
[2017-07-03 01:15] LABS: BICARBONATE 29.3 MEQ/L (21.0-32.0); BLOOD UREA NITROGEN 13 MG/DL (7-18); CALCIUM 9.1 MG/DL (8.5-10.1); CHLORIDE 104 MEQ/L (98-107); CREATININE 0.99 MG/DL (0.60-1.30); GLOMERULAR FILTRATION RATE 77 ML/MIN (>89); GLUCOSE,RANDOM 106 MG/DL (74-106); MAGNESIUM 2.2 MG/DL (1.5-2.5); SODIUM (NA) 140 MEQ/L (136-145)
[2017-07-03 01:19] LABS: TROPONIN I LESS THAN 0.02 NG/ML (0.02-0.05)
--- NOTE | 2017-07-03 01:20 | RADRPT ---
EXAM DATE/TIME: 07/03/2017 01:04 [facility] COMPARISON: CHEST SINGLE AP, November 22, 2016, 0:03. INDICATIONS : Shortness of breath and heart pounding. MEDICAL HISTORY : Myocardial infarction. Chronic obstructive pulmonary disease. Irregular heart beat. SURGICAL HISTORY : Appendectomy. Tonsillectomy. Cardiac cath. ENCOUNTER: Initial ACUITY: 1 day PAIN SCORE: 5/10 LOCATION: Bilateral chest FINDINGS: Trace left base atelectasis. Lungs otherwise appear clear. No pleural effusion. No pneumothorax. Heart size stable, normal. Thoracic aorta is mildly tortuous. CONCLUSION: Minimal left base atelectasis. Otherwise negative. Douglas Leblanc MD on July 03, 2017 at 1:18 Board Certified Radiologist. This report was verified electronically.
[2017-07-03] MEDS ORDERED: DOXY100C PO (01:37)
[2017-07-03] MEDS ORDERED: DOXYCYCLINE HYCLATE 100 MG CAP PO ONE (02:00)
--- NOTE | 2017-07-03 17:12 | EKG ---
Date Performed: 07/03/2017 Time Performed: 00:53:55 PTAGE: 61 years EKG: Sinus rhythm NONSPECIFIC T-WAVE ABNORMALITY Since the previous tracing, no significant change noted BORDERLINE EC G PREVIOUS TRACING : 11/22/2016 05.47 DOCTOR: Alfredito Díaz Interpretating Date/Time 07/03/2017 17:10:16
== END 2017-07-03 02:42 | disposition home or self-care (01) ==
LOC: NEPE 23:41
DX: R07.9 Chest pain, unspecified (principal); R06.00 Dyspnea, unspecified; L98.9 Disorder of the skin and subcutaneous tissue, unspecified; R94.31 Abnormal electrocardiogram [ECG] [EKG]; J44.9 Chronic obstructive pulmonary disease, unspecified; I10 Essential (primary) hypertension; I25.2 Old myocardial infarction; Z86.73 Personal history of transient ischemic attack (TIA), and cerebral infarction without residual deficits
CPT/HCPCS: 71046; 80048; 83605; 83735; 83880; 84484; 85025; 87040; 93005; 96374; 99285; J2060

== ENCOUNTER 2017-07-06 20:22 | Emergency (ER) | payer BC ==
[~2017-07-06 20:22] MED LIST changes: +DOXY100C PO
== END 2017-07-06 21:00 | disposition left against medical advice (07) ==
LOC: NED 20:22
DX: R50.9 Fever, unspecified (principal); Z53.21 Procedure and treatment not carried out due to patient leaving prior to being seen by health care provider
CPT/HCPCS: 99281

== ENCOUNTER 2017-07-12 23:49 | Emergency (ER) | payer BC ==
[~2017-07-12] VITALS: Ht 180.3 cm; Wt 88.0 kg
[2017-07-13 00:01] VITALS: BP 110/74; PULSE 74; RESP 18; TEMP 97.2; O2SAT 98
--- NOTE | 2017-07-13 00:24 | PD ---
HPI Chief Complaint: Chest Pain Time Seen by Provider: 00:09 Travel History International Travel<30 days: No Contact w/Intl Traveler<30days: No Traveled to known affect area: No History of Present Illness HPI The patient is a 61-year-old male who presents to the emergency department for chest pain. The patient states he developed right-sided chest pain which she describes as dull and pressure related earlier today. He then developed increasing pain 2 hours ago while at home. He also complains of shortness of breath and nausea without any vomiting or diaphoresis. The patient states he has had a previous heart attack but has not had a previous stent placed. He does take multiple medications but does not know why he takes the medications. He is unsure if he takes a medication for hyperlipidemia but does take medication for hypertension. He also states he took several aspirin 2 hours prior to arrival as well as for other medications, however, does not know the names of his medications. He does have a history of similar chest pain in the past after cocaine use, however, states he has not used cocaine for the last 3 days. He does not have a local primary physician. Symptoms are moderate. PFSH Past Medical History Hx Anticoagulant Therapy: Yes (Plavix) Heart Rhythm Problems: Yes Cardiac Catheterization: Yes Cardiovascular Problems: Yes High Cholesterol: No Chest Pain: Yes Congestive Heart Failure: No COPD: Yes Cerebrovascular Accident: Yes Diabetes: No Diminished Hearing: No Heparin Induced Thrombocytopen: No Hypertension: Yes Neurologic: Yes Respiratory: Yes (COPD) Immunizations Current: Yes Myocardial Infarction: Yes (2016) Tetanus Vaccination: < 5 Years Influenza Vaccination: Yes Tubal Ligation: Yes Past Surgical History Abdominal Surgery: Yes Appendectomy: Yes Coronary Artery Bypass Graft: No Tonsillectomy: Yes Other Surgery: Yes Family History Family Myocardial Infarction: Yes (MOTHER AND FATHER HAD [place]) Social History Alcohol Use: Yes (6-12 beers per day) Tobacco Use: Yes (almost two packs per day) Substance Use: Yes (cocaine occasionally) Allergies-Medications (Allergen,Severity, Reaction): Coded Allergies: penicillin G (Unverified Allergy, Severe, 07/13/17) Reported Meds & Prescriptions Reported Meds & Active Scripts Active Doxycycline Hyclate 100 Mg Cap 100 Mg PO BID 7 Days Reported Stiolto Respimat Inh (Tiotropium-Olodaterol Inh) 2.5-2.5 Mcg/Act Aero 2 Puff INH DAILY Rosuvastatin (Rosuvastatin Calcium) 20 Mg Tab 20 Mg PO HS Nitroglycerin SL (Nitroglycerin) 0.4 Mg Subl 0.4 Mg SL DIRECTED PRN ONE TABLET UNDER THE TONGUE NEEDED FOR CHEST PAIN, MAY REPEAT EVERY FIVE MINUTES FOR A TOTAL OF 3 DOSES OR CALL 911 IF NO RELIEF Carvedilol 6.25 Mg Tab 6.25 Mg PO BID Ranexa ER 12 HR (Ranolazine) 500 Mg Tab 500 Mg PO BID Ramipril 2.5 Mg Cap 2.5 Mg PO DAILY Aspirin Low Dose (Aspirin) 81 Mg Chew 81 Mg CHEW DAILY Plavix (Clopidogrel Bisulfate) 75 Mg Tab 75 Mg PO DAILY Review of Systems Except as stated in HPI: all other systems reviewed are Neg HENT: No: Lightheadedness Cardiovascular: Positive: Chest Pain or Discomfort Respiratory: Positive: Shortness of Breath Gastrointestinal: Positive: Nausea, No: Vomiting Neurologic: No: Dizziness Psychiatric: Positive: Substance Abuse (Cocaine abuse) Physical Exam Narrative GENERAL: Awake, alert, slightly belligerent 61-year-old male who appears his stated age and is in no acute respiratory distress. SKIN: Focused skin assessment warm/dry. HEAD: Atraumatic. Normocephalic. EYES: No injection or drainage. NECK: Trachea midline. No JVD. CARDIOVASCULAR: Regular rate and rhythm. No murmur appreciated. RESPIRATORY: No accessory muscle use. Clear to auscultation. Breath sounds equal bilaterally. GASTROINTESTINAL: Abdomen soft, non-tender, nondistended. MUSCULOSKELETAL: No obvious deformities. No clubbing. No cyanosis. No edema. NEUROLOGICAL: Awake and alert. No obvious cranial nerve deficits. Motor grossly within normal limits. Normal speech. Nonfocal. PSYCHIATRIC: Appropriate mood and affect; insight and judgment normal. Data Data Last Documented VS Vital Signs Date Time Temp Pulse Resp B/P (MAP) Pulse Ox O2 Delivery O2 Flow Rate FiO2 07/13/17 00:13 Room Air 07/13/17 00:01 97.2 74 18 110/74 (86) 98 MDM Medical Decision Making Medical Screen Exam Complete: Yes Emergency Medical Condition: Yes Medical Record Reviewed: Yes Interpretation(s) EKG reveals normal sinus rhythm with a rate of 69. Nonspecific T-wave changes with inverted T waves noted in lead V4, V5, V6. Differential Diagnosis Differential diagnosis includes acute coronary syndrome, STEMI, pericarditis, myocarditis, pulmonary embolism, cocaine abuse, GERD, esophageal spasm, malingering. Narrative Course EKG was ordered and interpreted. After history and physical examination the patient became belligerent, stated he wanted to leave the hospital. The patient was oriented 4 and appears competent to make a reasonable decision. The patient left AGAINST MEDICAL ADVICE. Procedures Procedure Narrative AMA: The risks of leaving against medical advice without further evaluation treatment were discussed with the patient. These risks include cardiac dysfunction, cardiac dysrhythmia, possible heart attack, possible stroke or . The patient indicated understanding of these risks and appeared to have the capacity to make this decision. Diagnosis Primary Impression: Chest pain Qualified Codes: R07.9 - Chest pain, unspecified Additional Impression: Cocaine abuse Patient Instructions: General Instructions Additional Instructions: Follow-up with your primary physician. Return if symptoms worsen or progress. Disposition: 07 AGAINST MEDICAL ADVICE Condition: Stable Behzad Leahy MD Jul 13, 2017 00:24
--- NOTE | 2017-07-13 16:35 | EKG ---
Date Performed: 07/13/2017 Time Performed: 00:14:29 PTAGE: 61 years EKG: Sinus rhythm NONSPECIFIC T-WAVE ABNORMALITY BORDERLINE ECG PREVIOUS TRACING : 07/03/2017 00.53 Since the previous tracing, no significant change noted DOCTOR: Mitul Flores Interpretating Date/Time 07/13/2017 16:30:14
== END 2017-07-13 00:24 | disposition left against medical advice (07) ==
LOC: NEPE 23:49
DX: R07.9 Chest pain, unspecified (principal); Z53.21 Procedure and treatment not carried out due to patient leaving prior to being seen by health care provider; F14.10 Cocaine abuse, uncomplicated; R06.02 Shortness of breath; I10 Essential (primary) hypertension; J44.9 Chronic obstructive pulmonary disease, unspecified; F10.10 Alcohol abuse, uncomplicated; R11.0 Nausea; Z72.0 Tobacco use; Z79.01 Long term (current) use of anticoagulants; R94.31 Abnormal electrocardiogram [ECG] [EKG]
CPT/HCPCS: 93005; 99281

== ENCOUNTER 2017-08-16 12:22 | Emergency (ER) | payer BC ==
[~2017-08-16 12:22] MED LIST changes: -ASPI81CH6 CHEW; +ASPI81CH6 PO
[2017-08-16 12:31] VITALS: BP 131/84; PULSE 79; RESP 16; TEMP 97.8; O2SAT 97
[2017-08-16] MEDS ORDERED: CEPH-460 PO (13:07)
[2017-08-16] MEDS ORDERED: BACT800T5 PO (13:07)
[2017-08-16] MEDS ORDERED: MUPI2OIN TOPICAL (13:07)
--- NOTE | 2017-08-16 13:07 | PD ---
HPI Chief Complaint: Skin Problem Time Seen by Provider: 12:48 Travel History International Travel<30 days: No Contact w/Intl Traveler<30days: No Traveled to known affect area: No History of Present Illness HPI 61-year-old male presents to the emergency department for evaluation of skin lesions. He states he has been intermittently getting them for several weeks. He states he has a new one to his right elbow. He is not currently on antibiotics. He reports subjective fevers, but no known fever. He reports history of cocaine use, but denies using IV drugs. He denies any other symptoms or complaints. Mild severity. PFSH Past Medical History Hx Anticoagulant Therapy: Yes (Plavix) Heart Rhythm Problems: Yes Cardiac Catheterization: Yes Cardiovascular Problems: Yes ([place]) High Cholesterol: No Chest Pain: Yes Congestive Heart Failure: No COPD: Yes Cerebrovascular Accident: Yes Diabetes: No Diminished Hearing: No Heparin Induced Thrombocytopen: No Hypertension: Yes Neurologic: Yes Respiratory: Yes (COPD) Immunizations Current: Yes Myocardial Infarction: Yes (2015) Tubal Ligation: Yes Past Surgical History Abdominal Surgery: Yes Appendectomy: Yes Coronary Artery Bypass Graft: No Tonsillectomy: Yes Other Surgery: Yes Social History Alcohol Use: Yes (6-12 beers per day) Tobacco Use: Yes (almost two packs per day) Substance Use: Yes (cocaine occasionally) Allergies-Medications (Allergen,Severity, Reaction): Coded Allergies: penicillin G (Unverified Allergy, Severe, 07/13/17) Reported Meds & Prescriptions Reported Meds & Active Scripts Active Doxycycline Hyclate 100 Mg Cap 100 Mg PO BID 7 Days Reported Stiolto Respimat Inh (Tiotropium-Olodaterol Inh) 2.5-2.5 Mcg/Act Aero 2 Puff INH DAILY Rosuvastatin (Rosuvastatin Calcium) 20 Mg Tab 20 Mg PO HS Nitroglycerin SL (Nitroglycerin) 0.4 Mg Subl 0.4 Mg SL DIRECTED PRN ONE TABLET UNDER THE TONGUE NEEDED FOR CHEST PAIN, MAY REPEAT EVERY FIVE MINUTES FOR A TOTAL OF 3 DOSES OR CALL 911 IF NO RELIEF Carvedilol 6.25 Mg Tab 6.25 Mg PO BID Ranexa ER 12 HR (Ranolazine) 500 Mg Tab 500 Mg PO BID Ramipril 2.5 Mg Cap 2.5 Mg PO DAILY Aspirin Low Dose (Aspirin) 81 Mg Chew 81 Mg CHEW DAILY Plavix (Clopidogrel Bisulfate) 75 Mg Tab 75 Mg PO DAILY Review of Systems Except as stated in HPI: all other systems reviewed are Neg Physical Exam Narrative GENERAL: Well-nourished, well-developed male patient, ambulatory. Afebrile. VSS. SKIN: Focused skin assessment warm/dry. Patient has 3 healing scabs to left elbow. He has a small wound to the right posterior elbow without drainage and with mild surrounding erythema. He has 2 small areas of erythema to his left dorsal hand. No fluctuance or induration HEAD: Normocephalic. Atraumatic. EYES: No scleral icterus. No injection or drainage. NECK: Supple, trachea midline. No JVD or lymphadenopathy. CARDIOVASCULAR: Regular rate and rhythm without murmurs, gallops, or rubs. RESPIRATORY: Breath sounds equal bilaterally. No accessory muscle use. Lung sounds are clear to auscultation. GASTROINTESTINAL: Abdomen soft, non-tender, nondistended. MUSCULOSKELETAL: No cyanosis, or edema. He has no bony point tenderness, no loss of ROM. BACK: Nontender without obvious deformity. No CVA tenderness. Data Data Last Documented VS Vital Signs Date Time Temp Pulse Resp B/P (MAP) Pulse Ox O2 Delivery O2 Flow Rate FiO2 08/16/17 12:31 97.8 79 16 131/84 (100) 97 MDM Medical Decision Making Medical Screen Exam Complete: Yes Emergency Medical Condition: Yes Medical Record Reviewed: Yes Differential Diagnosis cellulitis vs. abscess vs. abrasions Narrative Course 61 year old male presents to the emergency department for evaluation of skin lesion. He appears well on exam. No fevers. Patient will be discharged with a prescription for Bactrim, Keflex, mupirocin ointment. He is instructed on the need to follow up with his primary care physician. The patient was discharged in stable condition with instructions, including return instructions and follow up instructions. Diagnosis Primary Impression: Cellulitis Qualified Codes: L03.119 - Cellulitis of unspecified part of limb Referrals: Primary Care Physician call for appointment Patient Instructions: Cellulitis (ED), General Instructions Additional Instructions: Take antibiotics as directed until gone. Clean areas twice daily with soap and water and apply prescribed ointment. Follow up with your primary care physician. Return to the emergency department for any acute, worsening of symptoms. Med/Other Pt SpecificInfo: Prescription(s) given Scripts Mupirocin Topical (Mupirocin Topical) 2 % Oint 1 APPLIC TOPICAL BID for Mgmt Bacterial Infection, #22 GM 0 Refills Prov: Velia German 08/16/17 Cephalexin (Keflex) 500 Mg Capsule 500 MG PO Q6H for Infection for 10 Days, #40 CAP 0 Refills Prov: Velia German 08/16/17 Sulfamethoxazole-Trimethoprim (Bactrim DS) 800-160 Mg Tab 1 TAB PO BID for Infection, #20 TAB 0 Refills Prov: Velia German 08/16/17 Disposition: 01 DISCHARGE HOME Condition: Stable Velia German August 16, 2017 13:07
== END 2017-08-16 13:49 | disposition home or self-care (01) ==
LOC: NEPD 12:22
DX: L03.119 Cellulitis of unspecified part of limb (principal); I10 Essential (primary) hypertension; F14.90 Cocaine use, unspecified, uncomplicated; F17.200 Nicotine dependence, unspecified, uncomplicated
CPT/HCPCS: 99283

== ENCOUNTER 2018-01-30 03:49 | Observation (INO) ==
[2018-01-30 04:57] LABS: Baso % (Auto) 0.6 % (0.0-2.0); Eos # (Auto) 0.5 th/mm3 (0.0-0.4); Hematocrit 44.6 % (39.0-51.0); Lymph # (Auto) 2.2 th/mm3 (1.0-4.8); Mean Corpuscular HGB Conc 35.9 % (32.0-36.0); Mean Corpuscular Hemoglobin 34.8 pg (27.0-34.0); Mean Platelet Volume 8.2 fL (7.0-11.0); Mono # (Auto) 0.4 th/mm3 (0.0-0.9); Mono % (Auto) 5.2 % (0.0-8.0); Neut # (Auto) 4.8 th/mm3 (1.8-7.7); Neut % (Auto) 60.2 % (16.0-70.0); Platelet Count 217 th/mm3 (150-450); Red Cell Distribution Width 12.4 % (11.6-17.2); White Blood Count 7.9 th/mm3 (4.0-11.0)
[2018-01-30 05:14] LABS: Activated Partial Thrombo Time 27.1 sec (23.4-31.7)
[2018-01-30 05:19] LABS: Alanine Aminotransferase 30 U/L (12-78); Anion Gap 9 meq/L (5-15); Aspartate Aminotransferase 28 U/L (15-37); Blood Urea Nitrogen 13 mg/dL (7-18); Calcium 8.7 mg/dL (8.5-10.1); Carbon Dioxide 27.5 meq/L (21.0-32.0); Chloride 103 meq/L (98-107); Glomerular Filtration Rate 76 mL/min (>89); Glucose,Random 82 mg/dL (74-106); Lipase 591 U/L (73-393); Magnesium 2.2 mg/dL (1.5-2.5); Potassium 3.8 meq/L (3.5-5.1); Sodium 139 meq/L (136-145)
[2018-01-30 05:21] LABS: Alkaline Phosphatase 95 U/L (45-117); Creatine Kinase 209 U/L (39-308)
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
[2018-01-30 05:28] LABS: Alcohol 98 mg/dL (0-5)
[2018-01-30 05:40] LABS: Creatine Kinase MB 3.4 ng/mL (0.5-3.6)
--- NOTE | 2018-01-30 05:45 | CT ---
EXAM DATE: 01/30/2018 5:35 AM EST AGE/SEX: 62 years / Male INDICATIONS: Altered mental status; patient complains of general malaise. CLINICAL DATA: This is the patient's initial encounter. Patient reports that signs and symptoms have been present for 1 day and indicates a pain score of 3/10. MEDICAL/SURGICAL HISTORY: Myocardial infarction. Hypertension. Hypercholesterolemia. Appendectomy . Tonsillectomy. Abdominal surgery, unspecified; cardiac cath RADIATION DOSE: 66.34 CTDI (mGy) COMPARISON: No prior exams available for comparison. TECHNIQUE: CT of the head without contrast. Using automated exposure control and adjustment of the mA and/or kV according to patient size, radiation dose was kept as low as reasonably achievable to ob tain optimal diagnostic quality images. DICOM format image data is available electronically for revi ew and comparison. FINDINGS: Cerebrum: The ventricles are normal for age. No evidence of midline shift, mass lesion, hemorrhage or acute infarction. No extraaxial fluid collections are seen. Posterior Fossa: The cerebellum and brainstem are intact. The 4th ventricle is midline. The cerebe llopontine angle is unremarkable. Extracranial: The visualized portion of the orbits is intact. Skull: The calvaria is intact. No evidence of skull fracture. CONCLUSION: 1. Negative noncontrast head CT. . Electronically signed by: Yeison Tirado MD 01/30/2018 5:44 AM EST
--- NOTE | 2018-01-30 05:53 | XR ---
EXAM DATE: 01/30/2018 4:59 AM EST AGE/SEX: 62 years / Male INDICATIONS: Chest pain. Shortness of breath. Increased weakness. Cough. CLINICAL DATA: This is the patient's initial encounter. Patient reports that signs and symptoms have been present for 2 days and indicates a pain score of 4/10. MEDICAL/SURGICAL HISTORY: Hypertension. Myocardial infarction. Chronic obstructive pulmonary disease. Smoker. None. COMPARISON: No prior exams available for comparison. FINDINGS: A single AP view of the chest demonstrates the lungs to be symmetrically aerated without evidence of mass, infiltrate or effusion. The cardiomediastinal contours are unremarkable. Osseous structures a re intact. CONCLUSION: No acute cardiopulmonary disease. There is no evidence of pneumonia. Electronically signed by: Yeison Tirado MD 01/30/2018 5:52 AM EST
[2018-01-30] MEDS ORDERED: Acetaminophen 500 MG Tablet PO PRN (06:13)
[2018-01-30] MEDS ORDERED: Sod Chloride 0.9% Inj 1,000 ML IV.SIG ONE (07:56)
[2018-01-30] MEDS ORDERED: Insulin NovoLIN Regular Correctional Sugar Inj SQ SCH (08:00)
[2018-01-30 08:13] LABS: Bilirubin,Urine Negative (Negative); Clarity,Urine Clear (Clear); Color,Urine Straw (Yellw/Straw); Glucose,Urine (UA) Negative (Negative); Leukocyte Esterase,Urine Negative (Negative); Nitrite,Urine Negative (Negative); Specific Gravity,Urine 1.004 (1.002-1.035)
[2018-01-30] MEDS ORDERED: MethylPREDNISolone Sod Succinate Inj 125 MG/2 ML Vial IV.PUSH STA (08:32)
[2018-01-30 08:35] LABS: Creatine Kinase 159 U/L (39-308)
[2018-01-30] MEDS ORDERED: Dextrose 50% in Water 50 ML Vial IV.PUSH PRN (08:36)
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
[2018-01-30] MEDS ORDERED: Ramipril 2.5 MG Capsule PO SCH (09:00)
[2018-01-30] MEDS ORDERED: Carvedilol 6.25 MG Tablet PO SCH (09:00)
[2018-01-30] MEDS ORDERED: Ranolazine 500 MG 12HR ER Tablet PO SCH (09:00)
[2018-01-30 09:25] LABS: Amphetamine Screen,Urine Neg (Neg); Barbiturate Screen,Urine Neg (Neg); Cannabinoid Screen,Urine Neg (Neg); Cocaine Screen,Urine Pos (Neg)
[2018-01-30 09:39] LABS: Opiate Screen,Urine Neg (Neg)
[2018-01-30] MEDS ORDERED: Regadenoson Inj 0.4 MG/5 ML Syringe IV.PUSH ONE (11:46)
--- NOTE | 2018-01-30 12:47 | NM ---
EXAM DATE: 01/30/2018 12:43 PM EST AGE/SEX: 62 years / Male INDICATIONS:Angina. Myocardial infarction CLINICAL DATA: This is the patient's initial encounter. Patient reports that signs and symptoms have been present for 1 day and indicates a pain score of 6/10. MEDICAL/SURGICAL HISTORY: Hypertension. Appendectomy. Tonsillectomy. COMPARISON: C, MYOCARDIAL PERF PHARM SPECT, 11/22/2016. . DOSE: 8.5 mCi Tc 99m Myoview at rest 27.0 mCi [id number] at stress 0.4 mg Lexiscan STRESS SYMPTOMS: Shortness of breath. EJECTION FRACTION: 66 % TECHNIQUE: The patient underwent pharmacologic stress with infusion of prescribed dose. Continuous ECG tracing was monitored during stress. Gated SPECT imaging was performed after stress and conventi onal SPECT imaging was performed at rest. The examination was performed on a SPECT/CT scanner, both attenuation and non-corrected datasets were reviewed. FINDINGS: Distribution: The maximum perfused segment at stress is in the inferior wall. Perfusion Study: The examination demonstrates a small in size, severe, fixed perfusion defect invol ving the anterior wall. This would suggest an old area of infarct. No definite reversible abnormality is identified. There is no associated wall motion abnormality. Gated Study: There are intact wall motion and wall thickening without hypokinetic or dyskinetic segm ents. The ejection fraction is calculated at 66%. RISK CATEGORY: Low (<1% Annual Motality Rate) CONCLUSION: 1. Small, fixed perfusion defect anteriorly. This would suggest an old, small area of infarct. There is no associated wall motion abnormality. 2. No reversible perfusion defect to suggest stress-induced myocardial ischemia identified. Identifi ed. Electronically signed by: Real Orlando MD 01/30/2018 12:46 PM EST
--- NOTE | 2018-01-30 16:59 | ECG ---
Date Performed: 01/30/2018 Time Performed: 07:37:07 PTAGE: 62 years EKG: Sinus rhythm NONSPECIFIC T-WAVE ABNORMALITY BORDERLINE ECG Since PREVIOUS TRACING , no significant change noted PREVIOUS TRACIN01/30/2018 04.00 DOCTOR: Janelle Scruggs Interpretating Date/Time 01/30/2018 16:58:51
--- NOTE | 2018-01-30 16:59 | ECG ---
Date Performed: 01/30/2018 Time Performed: 04:00:38 PTAGE: 62 years EKG: Sinus rhythm NONSPECIFIC T-WAVE ABNORMALITY BORDERLINE ECG Since PREVIOUS TRACING , no significant change noted PREVIOUS TRACIN07/13/2017 00.14 DOCTOR: Janelle Scruggs Interpretating Date/Time 01/30/2018 16:58:38
--- NOTE | 2018-01-30 17:00 | TR ---
Date Performed: 01/30/2018 Time Performed: 11:53:43 DOCTOR: Janelle Scruggs DRUG LIST: CLINICAL HISTORY: REASON FOR TEST: REASON FOR ENDING: OBSERVATION: CONCLUSION: Lexiscan stress test was performed under standard four minute protocol. Radionuclid e was injected one minute prior to ending the test. No electrocardiographic abormalities were present to suggest ischemia. Nuclear imaging and interpretation are pending. COMMENTS: Lexiscan stress test was performed under standard four minute protocol. Radionuclide was injected one minute prior to ending the test. No electrocardiographic abormalities were present t o suggest ischemia. Nuclear imaging and interpretation are pending.
== END 2018-01-30 14:08 | disposition home or self-care (01) ==
LOC: NEPC 03:49 → NEDA 03:49 → NEDH 09:41 → NEPFCDU 12:45
PROVIDERS: ADMIT Internal Medicine Cardiovascular Disease; ATTEND Internal Medicine Cardiovascular Disease
DX: I25.2 Old myocardial infarction; J44.9 Chronic obstructive pulmonary disease, unspecified; F17.210 Nicotine dependence, cigarettes, uncomplicated; I25.10 Atherosclerotic heart disease of native coronary artery without angina pectoris; I10 Essential (primary) hypertension; E78.00 Pure hypercholesterolemia, unspecified; Z79.02 Long term (current) use of antithrombotics/antiplatelets; E78.5 Hyperlipidemia, unspecified; Z82.49 Family history of ischemic heart disease and other diseases of the circulatory system; F14.90 Cocaine use, unspecified, uncomplicated; Z90.49 Acquired absence of other specified parts of digestive tract; R07.89 Other chest pain